=== PATIENT | female | born 1965 | race Caucasian/White ===

== ENCOUNTER → 2016-08-13 | Outpatient (CLI) | payer OTHER ==
[~2016-08-13] MED LIST: ACET500T PO; BENT10CA PO; CELE1CAP9 PO; FURO20TA2 PO; K-TA10TA2 PO; LISI20TA PO; LOVA40TA PO; META28.35 PO; NAPR500T2 PO; PANT40TA2 PO; POTA75TA PO; SUCR1TA PO; ULTR50TA PO; VITA1CAP25 PO; VITA400T15 PO
== END ==
LOC: M LAB 09:30
PROVIDERS: ATTEND Internal Medicine Gastroenterology
DX: R19.7 Diarrhea, unspecified (principal)

== ENCOUNTER → 2016-08-22 | Outpatient (CLI) | payer OTHER ==
[~2016-08-22] VITALS: Ht 165.1 cm; Wt 70.8 kg
[~2016-08-22] MED LIST changes: +NS 1,000 ML IV SCH; +PROPOFOL 200 MG/20 ML VIAL As Ordered ONE
--- NOTE | 2016-08-22 13:01 | ROOR ---
Patient Name: Teri Ackerman Procedure Date: 08/22/2016 12:27 PM Date of : 1965 Age: 50 Room: [facility] Gender: Female Note Status: Finalized Procedure: Upper GI endoscopy Indications: Weight loss Providers: Greg MARTINEZ MD Referring MD: Tashi Venegas MD Requesting Provider: Medicines: Monitored Anesthesia Care Complications: No immediate complications. Procedure: Pre-Anesthesia Assessment: - The heart rate, respiratory rate, oxygen saturations, blood pressure, adequacy of pulmonary ventilation, and response to care were monitored throughout the procedure. The Endoscope was introduced through the mouth, and advanced to the second part of duodenum. The upper GI endoscopy was accomplished without difficulty. The patient tolerated the procedure well. Findings: A small, submucosal and ulcerating 1 cm nodule with no stigmata of recent bleeding was found in the upper third of the esophagus, 15 cm from the incisors. The mass was non-obstructing. The Z-line was regular and was found 37 cm from the incisors. The entire examined stomach was normal. The examined duodenum was normal. Biopsies were taken with a cold forceps in the proximal esophagus for histology. Impression: - 1 cm ulcerated submucosal esophageal nodule was found in the upper third of the esophagus. - Biopsied - Z-line regular, 37 cm from the incisors. - Normal stomach. - Normal examined duodenum. - No specimens collected. Recommendation: - Await pathology results. - Return to my office in 1 week. Greg Martinez MD Greg MARTINEZ MD 08/22/2016 1:00:54 PM This report has been signed electronically. Number of Addenda: 0 Note Initiated On: 08/22/2016 12:27 PM Estimated Blood Loss: Estimated blood loss: none.
--- NOTE | 2016-08-22 13:05 | ROOR ---
Patient Name: Teri Ackerman Procedure Date: 08/22/2016 12:28 PM Date of : 1965 Age: 50 Room: [facility] Gender: Female Note Status: Finalized Procedure: Colonoscopy Indications: Chronic diarrhea, Weight loss Providers: Greg MARTINEZ MD Referring MD: Tashi Venegas MD Requesting Provider: Medicines: Monitored Anesthesia Care Complications: No immediate complications. Procedure: Pre-Anesthesia Assessment: - The heart rate, respiratory rate, oxygen saturations, blood pressure, adequacy of pulmonary ventilation, and response to care were monitored throughout the procedure. The Colonoscope was introduced through the anus and advanced to the cecum, identified by appendiceal orifice and ileocecal valve. The colonoscopy was performed without difficulty. The patient tolerated the procedure well. The quality of the bowel preparation was good. Findings: The perianal and digital rectal examinations were normal. (Exam: Complete, Prep: Good or Excellent.) Three sessile polyps were found in the rectum and recto-sigmoid colon. The polyps were diminutive in size. These polyps were removed with a jumbo cold forceps. Resection and retrieval were complete. Non-bleeding internal hemorrhoids were found during retroflexion. The hemorrhoids were moderate. The exam was otherwise without abnormality on direct and retroflexion views. The terminal ileum appeared normal. Biopsies for histology were taken with a cold forceps for evaluation of microscopic colitis. Impression: - Three diminutive polyps in the rectum and at the recto-sigmoid colon, removed with a jumbo cold forceps. Resected and retrieved. - Non-bleeding internal hemorrhoids. - The examination of the colon and terminal ileum was otherwise normal on direct and retroflexion views. - Biopsies were taken with a cold forceps for evaluation of microscopic colitis. Recommendation: - Await pathology results. - Return to my office in 1 week. Greg Martinez MD Greg MARTINEZ MD 08/22/2016 1:04:44 PM This report has been signed electronically. Number of Addenda: 0 Note Initiated On: 08/22/2016 12:28 PM Estimated Blood Loss: Estimated blood loss: none.
[2016-08-22 13:29] VITALS: BP 105/69
== END | disposition home or self-care (01) ==
LOC: M OPP 10:52
PROVIDERS: ATTEND Internal Medicine Gastroenterology
DX: K62.1 Rectal polyp (principal); D12.7 Benign neoplasm of rectosigmoid junction; K64.8 Other hemorrhoids; R63.4 Abnormal weight loss; C15.3 Malignant neoplasm of upper third of esophagus; I10 Essential (primary) hypertension; E78.00 Pure hypercholesterolemia, unspecified; F17.200 Nicotine dependence, unspecified, uncomplicated; Z79.899 Other long term (current) drug therapy; Z88.2 Allergy status to sulfonamides

== ENCOUNTER → 2016-09-06 | Outpatient (CLI) | payer OTHER ==
[~2016-09-06] MED LIST changes: -NS 1,000 ML IV SCH; -PROPOFOL 200 MG/20 ML VIAL As Ordered ONE
--- NOTE | 2016-09-06 14:51 | REP ---
PET/CT: HISTORY: Esophageal adenocarcinoma. Monitoring response to treatment for esophageal carcinoma. Upper GI endoscopy from 08/22/2016 showed a 1 cm nodule with overlying ulceration in the upper third of the esophagus 15 cm from the incisors. COMPARISONS: Comparison CT study abdomen and pelvis 04/19/2016. Comparison chest CT 05/10/2016. TECHNIQUE: 46 minutes following the intravenous injection of a 7.6 mCi dose of F-18 FDG, three-dimensional PET scintigraphy is acquired from the skull base to the proximal thighs. Triplanar noncontrast CT scanning is acquired through the same anatomic range for attenuation correction, and image registration with scan parameters optimized to minimize radiation exposure to the patient. PET scintigraphy and CT datasets were fused and displayed on a workstation with multiplanar and projection display capability. PET/CT FINDINGS: There is a small focus of intensely hypermetabolic uptake in the proximal thoracic esophagus just below the thoracic inlet. Maximum SUV value in this small nodule is 12.9. The area of increased uptake is barely visible on accompanying CT. It measures 1.4 cm in diameter on PET scintigraphy images. No other abnormal hypermetabolic uptake is seen within the chest or mediastinum. Head and neck soft tissues are unremarkable. No pulmonary parenchymal nodule or mass lesion is observed. In the abdomen and pelvis, normal hepatic, splenic, gastrointestinal, and genitourinary FDG accumulation is seen. No abnormal intra-abdominal or pelvic hypermetabolic uptake is seen. IMPRESSION: There is a small 1.4 cm nodular hypermetabolic focus in the proximal thoracic esophagus just below the thoracic inlet. No other abnormal hypermetabolic uptake is seen. Signed by Ronnell Bautista MD 09/06/2016 03:18 P
== END ==
LOC: M RAD 11:19
PROVIDERS: ATTEND Internal Medicine Gastroenterology
DX: C15.9 Malignant neoplasm of esophagus, unspecified (principal)

== ENCOUNTER → 2016-10-11 | Outpatient (CLI) | payer OTHER ==
[2016-10-11 09:27] LABS: BASO % 0.7 % (0.0-1.0); EOS # 0.2 K/mm3 (0.0-0.50); EOS % 3.5 % (0.0-3.0); LARGE UNSTAINED CELL # 0.2 K/mm3 (0.0-0.4); LARGE UNSTAINED CELL % 2.4 % (0.0-4.0); LYMPH % 31.3 % (24.0-44.0); MEAN CORPUSCULAR HGB CONC 33.2 g/dl (32.0-36.5); MEAN CORPUSCULAR VOLUME 93.3 fl (80.0-96.0); MONO # 0.4 K/mm3 (0.0-0.8); MONO % 5.9 % (0.0-5.0); NEUTROPHILS # 3.6 K/mm3 (1.8-7.7); NEUTROPHILS % 56.3 % (36.0-66.0); PLATELET COUNT, AUTOMATED 212 k/mm3 (150-450); RED CELL DISTRIBUTION WIDTH 12.2 % (11.5-14.5); WHITE BLOOD COUNT 6.5 K/mm3 (4.0-10.0)
[2016-10-11 09:44] LABS: ALBUMIN 3.6 GM/DL (3.2-5.2); ALBUMIN/GLOBULIN RATIO 1.38 (1.00-1.93); ALKALINE PHOSPHATASE 65 U/L (45-117); ALT/SGPT 18 U/L (12-78); ANION GAP 8 MEQ/L (8-16); AST/SGOT 10 U/L (15-37); BILIRUBIN,TOTAL 0.4 MG/DL (0.2-1.0); BLOOD UREA NITROGEN 14 MG/DL (7-18); CARBON DIOXIDE LEVEL 29 MEQ/L (21-32); CHLORIDE LEVEL 106 MEQ/L (98-107); CREATININE FOR GFR 0.97 MG/DL (0.55-1.02); GLOMERULAR FILTRATION RATE > 60.0 (>51); GLUCOSE, FASTING 90 MG/DL (70-105); SODIUM LEVEL 143 MEQ/L (136-145); TOTAL PROTEIN 6.2 GM/DL (6.4-8.2)
--- NOTE | 2016-10-11 11:10 | ECGEPIP ---
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
== END ==
LOC: M LAB 08:32
PROVIDERS: ATTEND Internal Medicine Gastroenterology
DX: C15.3 Malignant neoplasm of upper third of esophagus (principal)

== ENCOUNTER → 2016-10-16 | Outpatient (REF) | payer OTHER | LOC: M LAB REF 09:35 | PROVIDERS: ATTEND Physician Assistant | DX: J02.9 Acute pharyngitis, unspecified (principal) ==

== ENCOUNTER → 2017-01-17 | Outpatient (CLI) | payer OTHER ==
[~2017-01-17] MED LIST changes: +CLAR1TAB2 PO; +TRIA1CR TOP
[2017-01-17 11:26] LABS: BASO % 0.8 % (0.0-1.0); EOS # 0.2 K/mm3 (0.0-0.50); LARGE UNSTAINED CELL # 0.1 K/mm3 (0.0-0.4); LYMPH % 34.5 % (24.0-44.0); MEAN CORPUSCULAR HEMOGLOBIN 29.9 pg (27.0-33.0); MEAN CORPUSCULAR HGB CONC 32.7 g/dl (32.0-36.5); MEAN CORPUSCULAR VOLUME 91.5 fl (80.0-96.0); MONO # 0.3 K/mm3 (0.0-0.8); MONO % 6.3 % (0.0-5.0); NEUTROPHILS # 2.8 K/mm3 (1.8-7.7); NEUTROPHILS % 52.5 % (36.0-66.0); PLATELET COUNT, AUTOMATED 220 k/mm3 (150-450); RED CELL DISTRIBUTION WIDTH 12.6 % (11.5-14.5); WHITE BLOOD COUNT 5.4 K/mm3 (4.0-10.0)
[2017-01-17 11:40] LABS: ALBUMIN 3.8 GM/DL (3.2-5.2); ALBUMIN/GLOBULIN RATIO 1.46 (1.00-1.93); BILIRUBIN,TOTAL 0.6 MG/DL (0.2-1.0); CALCIUM LEVEL 9.4 MG/DL (8.5-10.1); CREATININE FOR GFR 1.04 MG/DL (0.55-1.02); FREE T4 1.04 NG/DL (0.76-1.46); PERCENT SATURATION 32.9 % (13.2-45.0); POTASSIUM SERUM 4.5 MEQ/L (3.5-5.1); TOTAL PROTEIN 6.4 GM/DL (6.4-8.2)
== END ==
LOC: M LAB 10:17
PROVIDERS: ATTEND Family Medicine
DX: N18.2 Chronic kidney disease, stage 2 (mild) (principal)

== ENCOUNTER → 2017-01-25 | Outpatient (CLI) | payer OTHER ==
[~2017-01-25] MED LIST changes: +GASTROGRAFIN SOLUTION 30ML (Q9963) As Ordered ONE; +ISOVUE-370 76% 100ML VIAL (Q9967) As Ordered ONE
--- NOTE | 2017-01-26 14:32 | REP ---
Clinical: Esophageal neoplasm. Technique: Axial contrast enhanced images from the thoracic inlet to the upper abdomen using 100 ml Isovue 370 intravenous contrast material with coronal and sagittal re-formations. Comparison: 05/10/2016 Findings: The bilateral lung aviles are well-aerated, symmetric and clear. No focal consolidation, nodule or mass lesion is appreciated. No pleural effusion/reaction or pneumothorax. Tracheobronchial tree is patent. No axillary, hilar, or mediastinal adenopathy is appreciated. The mediastinum demonstrates atherosclerotic changes to the coronary arteries without cardiomegaly or pericardial effusion. The thoracic aorta appears normal and without aneurysm or dissection. The middle mediastinum including the esophagus and paraesophageal soft tissues appear relatively normal. Surrounding musculoskeletal structures are intact. Limited evaluation of the upper abdomen demonstrates stable low density hyperplastic changes to the bilateral adrenal glands essentially unchanged compared to 04/19/2016 and 08/31/2011. Impression: 1. Essentially normal contrast enhanced chest CT. 2. The mediastinum appears normal and the paraesophageal soft tissue and esophagus appear unremarkable. 3. No acute mediastinal or pleuroparenchymal process appreciated. Signed by Bismark Sal MD 01/25/2017 11:22 P
--- NOTE | 2017-01-26 14:32 | REP ---
Clinical: History of esophageal carcinoma. Technique: Axial contrast enhanced images from the lung bases to the pubic symphysis using oral and 100 ml Isovue 370 intravenous contrast material with precontrast and delayed images of the abdomen as well as coronal and sagittal re-formations. Comparison: 04/19/2016. Findings: Lung bases are clear. Visualized heart and pericardium normal. Liver, spleen, pancreas, and bilateral kidneys appear normal. Stable hyperplastic changes to the bilateral adrenal glands again noted. Evidence for prior cholecystectomy. The enteric system is without obstruction or acute inflammatory process. Normal terminal ileum and appendix identified in the right lower quadrant. Pelvis demonstrates normal bladder and age-appropriate uterus/adnexa. No pelvic fluid or ascites. No significant adenopathy. No mass lesion. No free air. Atherosclerotic changes of the aorta and vasculature noted without aneurysm or dissection. Surrounding musculoskeletal structures demonstrate age-related changes without focal osseous abnormality. Impression: 1. Stable hyperplastic changes to the bilateral adrenal glands. 2. No acute abdominopelvic pathology appreciated. Signed by Bismark Sal MD 01/25/2017 11:25 P
== END ==
LOC: M RAD 15:17
PROVIDERS: ATTEND Family Medicine
DX: C15.3 Malignant neoplasm of upper third of esophagus (principal)
CPT/HCPCS: 71260; 74178; Q9963; Q9967

== ENCOUNTER → 2017-02-21 | Outpatient (REF) | payer OTHER ==
[~2017-02-21] MED LIST changes: -GASTROGRAFIN SOLUTION 30ML (Q9963) As Ordered ONE; -ISOVUE-370 76% 100ML VIAL (Q9967) As Ordered ONE
[2017-02-28 00:06] LABS: EBV PCR QUANTITATIVE Negative copies/mL (Negative); Lyme Disease IgG/IgM Antibodie <0.91 ISR (0.00-0.90); Lyme Disease IgM Ab Quantitati <0.80 index (0.00-0.79)
== END ==
LOC: M SFHCPLAZ 15:22
PROVIDERS: ATTEND Physician Assistant Medical
DX: R53.82 Chronic fatigue, unspecified (principal)

== ENCOUNTER → 2017-03-09 | Outpatient (REF) | payer OTHER | LOC: M SFHCPLAZ 15:15 → M LAB REF 15:15 | PROVIDERS: ATTEND Nurse Practitioner Family | DX: S00.31XA Abrasion of nose, initial encounter (principal); X58.XXXA Exposure to other specified factors, initial encounter; Y92.89 Other specified places as the place of occurrence of the external cause; Y93.89 Activity, other specified; Y99.8 Other external cause status ==

== ENCOUNTER → 2017-03-11 | Outpatient (CLI) | payer OTHER ==
[2017-03-11 11:20] LABS: ALKALINE PHOSPHATASE 77 U/L (45-117); ALT/SGPT 23 U/L (12-78); AST/SGOT 11 U/L (15-37); BILIRUBIN,DIRECT 0.1 MG/DL (0.0-0.2); BILIRUBIN,TOTAL 0.3 MG/DL (0.2-1.0); BLOOD UREA NITROGEN 17 MG/DL (7-18); CALCIUM LEVEL 8.6 MG/DL (8.5-10.1); CARBON DIOXIDE LEVEL 29 MEQ/L (21-32); CHLORIDE LEVEL 108 MEQ/L (98-107); CREATININE FOR GFR 1.04 MG/DL (0.55-1.02); GLUCOSE, FASTING 91 MG/DL (70-105); PHOSPHORUS LEVEL 3.2 MG/DL (2.5-4.9); POTASSIUM SERUM 4.1 MEQ/L (3.5-5.1); TOTAL PROTEIN 6.4 GM/DL (6.4-8.2)
[2017-03-11 11:27] LABS: ALBUMIN 3.6 GM/DL (3.2-5.2); ALBUMIN/GLOBULIN RATIO 1.29 (1.00-1.93)
[2017-03-11 12:58] LABS: ANION GAP 6 MEQ/L (8-16); SODIUM LEVEL 143 MEQ/L (136-145)
== END ==
LOC: M LAB 10:18
PROVIDERS: ATTEND Physician Assistant
DX: M47.896 Other spondylosis, lumbar region (principal)

== ENCOUNTER → 2017-03-14 | Outpatient (REF) | payer OTHER ==
[2017-03-14 16:22] LABS: FREE T4 1.12 NG/DL (0.76-1.46)
== END ==
LOC: M SFHCPLAZ 11:36
PROVIDERS: ATTEND Physician Assistant Medical
DX: R53.82 Chronic fatigue, unspecified (principal)

== ENCOUNTER 2017-03-19 21:08 | Emergency (ER) | payer OTHER ==
[~2017-03-19] VITALS: Ht 165.1 cm; Wt 89.9 kg
[~2017-03-19 21:08] MED LIST changes: -CLAR1TAB2 PO; -TRIA1CR TOP
[2017-03-20] MEDS ORDERED: CLAR1TAB2 PO (01:30)
[2017-03-20] MEDS ORDERED: TRIA1CR TOP (01:30)
[2017-03-20 01:36] VITALS: BP 134/85
[2017-03-20] MEDS ORDERED: diphenhydrAMINE 25 MG CAP PO ONE (01:45)
== END 2017-03-20 01:43 | disposition home or self-care (01) ==
LOC: M ED 21:08
DX: L42 Pityriasis rosea (principal); I10 Essential (primary) hypertension; E78.00 Pure hypercholesterolemia, unspecified; Z79.899 Other long term (current) drug therapy; Z88.2 Allergy status to sulfonamides; Z87.891 Personal history of nicotine dependence

== ENCOUNTER → 2017-03-20 | Outpatient (CLI) | payer OTHER ==
[~2017-03-20] MED LIST changes: +CLAR1TAB2 PO; +TRIA1CR TOP
--- NOTE | 2017-03-27 07:41 | SLEEPHOME ---
DATE OF STUDY: 03/20/2017 ORDERED BY: KARYN Corley Diagnostic home sleep testing was performed due to concern for the obstructive sleep apnea syndrome in this patient with a history of excessive somnolence, chronic fatigue and snoring. For testing, a nocturnal T3 respiratory monitoring device was used. Continuous record was made of pulse, oxygen saturation, airflow, chest and abdominal strain , and body position. 9 hour and 9 minutes of data were reviewed. There were 5 hours and 46 minutes marked as time in bed. During the interval marked time in bed, there were 23 respiratory events identified of 10 seconds in duration or greater for a respiratory event index of 4. The events were of various types, both mixed, central and obstructive, most commonly obstructive. Strain gauges did show variability between overt respiratory events. Respiratory events were most frequent in the supine posture. The patient's baseline pulse rate was 80 beats per minute. Pulse rate ranged 63-161. Baseline saturation 94%, lowest oxygen saturation recorded 87%. Testing was performed in both the supine and non- supine positions. IMPRESSION: Borderline diagnostic home sleep testing with repetitive respiratory events and oxygen desaturation to 87% with a respiratory event index of 4 is suggestive of the obstructive sleep apnea syndrome. RECOMMENDATION: Given that the events seen were more frequent in the supine posture, sleep position retraining for avoidance of the supine posture would be reasonable. Should the patient's sleep symptoms persist, referral for formal sleep evaluation and in-laboratory testing could be considered, as in lab testing is more sensitive for the identification of mild disease. MTDD
== END ==
LOC: M SLEEP HO 10:17
PROVIDERS: ATTEND Physician Assistant Medical
DX: G47.33 Obstructive sleep apnea (adult) (pediatric) (principal)

== ENCOUNTER → 2017-04-23 | Outpatient (CLI) | payer OTHER ==
--- NOTE | 2017-04-23 15:38 | REPMRS ---
Patient History The patient states she had a clinical breast exam in September 2016. Patient is nulliparous. Family history of colorectal cancer in maternal aunt at age 50 or over. Took hormonal contraceptives for 3 years. Digital Mammo Screening Bilat: April 23, 2017 - Exam #: [id number] Bilateral CC and MLO view(s) were taken. Technologist: Marbella Bobo, Technologist Prior study comparison: March 28, 2016, bilateral digital mammo screening bilat performed at [facility]. March 25, 2015, bilateral digital mammo screening bilat performed at [facility]. FINDINGS: There are scattered fibroglandular densities. There has been no change in the appearance of the mammogram from the prior studies. There is a mild amount of scattered fibroglandular density which is fairly symmetric. There is no interval development of dominant mass, architectural distortion, or clustered microcalcification suggestive of malignancy. ASSESSMENT: BI-RADS/ACR category 1 mammogram. Negative. Recommendation Routine screening mammogram in 1 year (for women over age 40). This mammogram was interpreted with the aid of an FDA-approved computer-aided dectection system. Electronically Signed By: Adam Bautista MD 04/23/17 9721
== END ==
LOC: M RAD 14:39
PROVIDERS: ATTEND Family Medicine
DX: Z12.31 Encounter for screening mammogram for malignant neoplasm of breast (principal)

== ENCOUNTER → 2017-05-31 | Outpatient (CLI) | payer OTHER ==
[2017-05-31 10:27] LABS: ANION GAP 6 MEQ/L (8-16); BLOOD UREA NITROGEN 31 MG/DL (7-18); CALCIUM LEVEL 9.9 MG/DL (8.5-10.1); CARBON DIOXIDE LEVEL 29 MEQ/L (21-32); CHLORIDE LEVEL 107 MEQ/L (98-107); CREATININE FOR GFR 0.95 MG/DL (0.55-1.02); FREE T4 0.97 NG/DL (0.76-1.46); GLOMERULAR FILTRATION RATE > 60.0 (>51); GLUCOSE, FASTING 101 MG/DL (70-105); POTASSIUM SERUM 4.8 MEQ/L (3.5-5.1); SODIUM LEVEL 142 MEQ/L (136-145)
== END ==
LOC: M LAB 09:17
DX: R10.33 Periumbilical pain (principal)
CPT/HCPCS: 84443

== ENCOUNTER → 2017-06-01 | Outpatient (CLI) | payer OTHER ==
[~2017-06-01] MED LIST changes: -ACET500T PO; -BENT10CA PO; -CELE1CAP9 PO; -CLAR1TAB2 PO; -FURO20TA2 PO; +GASTROGRAFIN SOLUTION 30ML (Q9963) As Ordered; +ISOVUE-370 76% 100ML VIAL (Q9967) As Ordered; -K-TA10TA2 PO; -LISI20TA PO; -LOVA40TA PO; -META28.35 PO; -NAPR500T2 PO; -PANT40TA2 PO; -POTA75TA PO; -SUCR1TA PO; -TRIA1CR TOP; -ULTR50TA PO; -VITA1CAP25 PO; -VITA400T15 PO
== END ==
LOC: M RAD 13:52
DX: R10.33 Periumbilical pain (principal)
CPT/HCPCS: Q9963

== ENCOUNTER → 2017-07-21 | Outpatient (CLI) | payer OTHER ==
[2017-07-21 11:12] LABS: ALBUMIN 3.7 GM/DL (3.2-5.2); ALBUMIN/GLOBULIN RATIO 1.19 (1.00-1.93); ALKALINE PHOSPHATASE 84 U/L (45-117); ALT/SGPT 26 U/L (12-78); ANION GAP 7 MEQ/L (8-16); AST/SGOT 9 U/L (7-37); BILIRUBIN,TOTAL 0.3 MG/DL (0.2-1.0); BLOOD UREA NITROGEN 32 MG/DL (7-18); CARBON DIOXIDE LEVEL 25 MEQ/L (21-32); CHLORIDE LEVEL 112 MEQ/L (98-107); CREATININE FOR GFR 0.93 MG/DL (0.55-1.30); GLOMERULAR FILTRATION RATE > 60.0 (>51); GLUCOSE, FASTING 110 MG/DL (70-100); POTASSIUM SERUM 4.9 MEQ/L (3.5-5.1); SODIUM LEVEL 144 MEQ/L (136-145); TOTAL PROTEIN 6.8 GM/DL (6.4-8.2)
== END ==
LOC: M LAB 09:07
DX: R10.84 Generalized abdominal pain (principal)
CPT/HCPCS: 80053

== ENCOUNTER → 2017-07-23 | Outpatient (CLI) | payer OTHER ==
[~2017-07-23] MED LIST changes: -GASTROGRAFIN SOLUTION 30ML (Q9963) As Ordered; -ISOVUE-370 76% 100ML VIAL (Q9967) As Ordered; +PROHANCE 279.3MG/ML 15ML VIAL (A9576) As Ordered; +PROHANCE 279.3MG/ML 5ML VIAL (A9576) As Ordered
== END ==
LOC: M RAD 08:41
DX: R10.33 Periumbilical pain (principal); M47.816 Spondylosis without myelopathy or radiculopathy, lumbar region; C15.3 Malignant neoplasm of upper third of esophagus; D18.09 Hemangioma of other sites; M51.26 Other intervertebral disc displacement, lumbar region
CPT/HCPCS: A9576

== ENCOUNTER → 2017-08-18 | Outpatient (CLI) | payer OTHER ==
[2017-08-18 16:41] LABS: BASO # 0.1 10^3/uL (0.0-0.2); BASO % 0.7 % (0.0-1.0); EOS # 0.2 10^3/uL (0.0-0.50); EOS % 2.1 % (0.0-3.0); HEMATOCRIT 41.8 % (36.0-47.0); HEMOGLOBIN 13.5 g/dl (12.0-16.0); IMMATURE GRANULOCYTE % 0.3 % (0-3.0); LYMPH # 2.2 10^3/uL (1.5-4.5); LYMPH % 30.2 % (24.0-44.0); MEAN CORPUSCULAR HEMOGLOBIN 28.5 pg (27.0-33.0); MEAN CORPUSCULAR HGB CONC 32.3 g/dl (32.0-36.5); MEAN CORPUSCULAR VOLUME 88.4 fl (80.0-96.0); MONO # 0.6 10^3/uL (0.0-0.8); MONO % 8.2 % (0.0-5.0); NEUTROPHILS # 4.2 10^3/uL (1.8-7.7); NEUTROPHILS % 58.5 % (36.0-66.0); PLATELET COUNT, AUTOMATED 238 10^3/uL (150-450); RED BLOOD COUNT 4.73 10^6/uL (4.00-5.40); RED CELL DISTRIBUTION WIDTH 13.2 % (11.5-14.5); WHITE BLOOD COUNT 7.2 10^3/uL (4.0-10.0)
== END ==
LOC: M LAB 16:03
DX: M47.896 Other spondylosis, lumbar region (principal)
CPT/HCPCS: 85025

== ENCOUNTER 2017-09-17 10:06 | Emergency (ER) | payer OTHER ==
[2017-09-17 11:05] LABS: BASO % 0.6 % (0.0-1.0); EOS # 0.2 10^3/uL (0.0-0.50); EOS % 3.2 % (0.0-3.0); HEMATOCRIT 41.5 % (36.0-47.0); HEMOGLOBIN 13.4 g/dl (12.0-15.5); IMMATURE GRANULOCYTE % 0.2 % (0-3.0); LYMPH # 1.8 10^3/uL (1.5-4.5); LYMPH % 28.8 % (24.0-44.0); MEAN CORPUSCULAR HEMOGLOBIN 28.5 pg (27.0-33.0); MEAN CORPUSCULAR HGB CONC 32.3 g/dl (32.0-36.5); MEAN CORPUSCULAR VOLUME 88.1 fl (80.0-96.0); MONO # 0.5 10^3/uL (0.0-0.8); MONO % 7.4 % (0.0-5.0); NEUTROPHILS # 3.7 10^3/uL (1.8-7.7); NEUTROPHILS % 59.8 % (36.0-66.0); PLATELET COUNT, AUTOMATED 225 10^3/uL (150-450); RED BLOOD COUNT 4.71 10^6/uL (4.00-5.40); RED CELL DISTRIBUTION WIDTH 13.2 % (11.5-14.5); WHITE BLOOD COUNT 6.2 10^3/uL (4.0-10.0)
[2017-09-17 11:16] LABS: INR 0.94; PROTHROMBIN TIME 12.6 SECONDS (12.4-14.5)
[2017-09-17 11:17] LABS: PARTIAL THROMBOPLASTIN TIME 28.6 SECONDS (26.8-37.9)
[2017-09-17 11:40] LABS: ALBUMIN 3.7 GM/DL (3.2-5.2); ALBUMIN/GLOBULIN RATIO 1.19 (1.00-1.93); ALKALINE PHOSPHATASE 88 U/L (45-117); ALT/SGPT 26 U/L (12-78); ANION GAP 5 MEQ/L (8-16); AST/SGOT 13 U/L (7-37); BILIRUBIN,DIRECT < 0.1 MG/DL (0.0-0.2); BILIRUBIN,TOTAL 0.3 MG/DL (0.2-1.0); BLOOD UREA NITROGEN 26 MG/DL (7-18); CALCIUM LEVEL 9.5 MG/DL (8.5-10.1); CARBON DIOXIDE LEVEL 28 MEQ/L (21-32); CHLORIDE LEVEL 109 MEQ/L (98-107); CPK CREATINE PHOSPHOKINASE 95 U/L (26-192); CREATININE FOR GFR 0.97 MG/DL (0.55-1.30); FREE T4 0.93 NG/DL (0.76-1.46); GLOMERULAR FILTRATION RATE > 60.0 (>51); GLUCOSE, FASTING 104 MG/DL (70-100); LIPASE 139 U/L (73-393); POTASSIUM SERUM 4.7 MEQ/L (3.5-5.1); SODIUM LEVEL 142 MEQ/L (136-145); TOTAL PROTEIN 6.8 GM/DL (6.4-8.2); TROPONIN I < 0.02 NG/ML (< 0.10)
[2017-09-17 11:46] LABS: CK-MB VALUE MASS 2.5 NG/ML (<3.6); MB/CK RELATIVE INDEX 2.63 (< OR =4); NT-PRO BNP 77 PG/ML (<125)
[2017-09-17 14:41] LABS: CK-MB VALUE MASS 2.2 NG/ML (<3.6); CPK CREATINE PHOSPHOKINASE 84 U/L (26-192); MB/CK RELATIVE INDEX 2.61 (< OR =4); TROPONIN I < 0.02 NG/ML (< 0.10)
== END 2017-09-17 15:02 | disposition home or self-care (01) ==
LOC: M ED 10:06
DX: R00.2 Palpitations (principal); K21.9 Gastro-esophageal reflux disease without esophagitis; I10 Essential (primary) hypertension; E78.5 Hyperlipidemia, unspecified; Z88.2 Allergy status to sulfonamides; Z79.899 Other long term (current) drug therapy
CPT/HCPCS: 71045

== ENCOUNTER 2017-10-04 11:15 | Day surgery (SDC) | payer OTHER ==
[2017-10-04] MEDS: NS 1,000 ML IV (11:30)
[2017-10-04] MEDS ORDERED: fentaNYL 100 MCG/2 ML INJECTION (J3010) As Ordered (11:53)
[2017-10-04] MEDS ORDERED: PROPOFOL 200 MG/20 ML VIAL As Ordered (11:53)
[2017-10-04] MEDS ORDERED: LIDOCAINE 2% INJ 100 MG/5 ML SDV (FOR ANES.) As Ordered (11:53)
== END 2017-10-04 13:10 | disposition home or self-care (01) ==
LOC: M OPP 11:15
DX: Q40.2 Other specified congenital malformations of stomach (principal); K22.8 Other specified diseases of esophagus; K31.84 Gastroparesis; R10.13 Epigastric pain; I10 Essential (primary) hypertension; E78.00 Pure hypercholesterolemia, unspecified; K21.9 Gastro-esophageal reflux disease without esophagitis; E87.6 Hypokalemia; R94.31 Abnormal electrocardiogram [ECG] [EKG]; Z79.899 Other long term (current) drug therapy; Z88.8 Allergy status to other drugs, medicaments and biological substances; Z87.891 Personal history of nicotine dependence; Z85.01 Personal history of malignant neoplasm of esophagus; Z90.49 Acquired absence of other specified parts of digestive tract; Z82.49 Family history of ischemic heart disease and other diseases of the circulatory system
CPT/HCPCS: 43235

== ENCOUNTER → 2018-01-20 | Outpatient (CLI) | payer OTHER ==
[2018-01-20 17:45] LABS: BASO % 0.5 % (0.0-1.0); EOS # 0.1 10^3/uL (0.0-0.50); EOS % 1.5 % (0.0-3.0); HEMOGLOBIN 13.7 g/dl (12.0-15.5); IMMATURE GRANULOCYTE % 0.3 % (0-3.0); LYMPH # 1.9 10^3/uL (1.5-4.5); MEAN CORPUSCULAR HEMOGLOBIN 28.2 pg (27.0-33.0); MEAN CORPUSCULAR HGB CONC 32.6 g/dl (32.0-36.5); MEAN CORPUSCULAR VOLUME 86.4 fl (80.0-96.0); MONO # 0.5 10^3/uL (0.0-0.8); MONO % 7.2 % (0.0-5.0); NEUTROPHILS # 4.8 10^3/uL (1.8-7.7); NEUTROPHILS % 64.5 % (36.0-66.0); PLATELET COUNT, AUTOMATED 276 10^3/uL (150-450); RED BLOOD COUNT 4.86 10^6/uL (4.00-5.40); RED CELL DISTRIBUTION WIDTH 13.9 % (11.5-14.5); RETIC HEMOGLOBIN EQUIVALENT 32.7 pg (24-36); RETICULOCYTE # 75.3 10^9/L (17-77); RETICULOCYTE % 1.6 % (0.5-1.5); WHITE BLOOD COUNT 7.5 10^3/uL (4.0-10.0)
[2018-01-20 18:02] LABS: ESTIMATED AVERAGE GLUCOSE 123 MG/DL (60-110); HEMOGLOBIN A1c 5.9 %
[2018-01-20 18:03] LABS: ALBUMIN 3.8 GM/DL (3.2-5.2); ALBUMIN/GLOBULIN RATIO 1.12 (1.00-1.93); ALKALINE PHOSPHATASE 91 U/L (45-117); ALT/SGPT 39 U/L (12-78); ANION GAP 8 MEQ/L (8-16); AST/SGOT 19 U/L (7-37); BILIRUBIN,TOTAL 0.3 MG/DL (0.2-1.0); BLOOD UREA NITROGEN 21 MG/DL (7-18); C REACTIVE PROTEIN QUANTITATIV 0.54 MG/DL (0.00-0.30); CALCIUM LEVEL 9.3 MG/DL (8.5-10.1); CARBON DIOXIDE LEVEL 26 MEQ/L (21-32); CHLORIDE LEVEL 109 MEQ/L (98-107); CHOLESTEROL LEVEL 166 MG/DL (<200); CHOLESTEROL RISK RATIO 2.677 (<5); CPK CREATINE PHOSPHOKINASE 156 U/L (26-192); CREATININE FOR GFR 1.15 MG/DL (0.55-1.30); GLOMERULAR FILTRATION RATE 52.3 (>51); GLUCOSE, FASTING 88 MG/DL (70-100); HDL CHOLESTEROL 62 MG/DL (>40); NON-HDL-C 104 MG/DL; POTASSIUM SERUM 4.5 MEQ/L (3.5-5.1); SODIUM LEVEL 143 MEQ/L (136-145); TOTAL PROTEIN 7.2 GM/DL (6.4-8.2); TRIGLYCERIDES LEVEL 105 MG/DL (<150)
[2018-01-21 10:04] LABS: PTH INTACT 112.1 PG/ML (18.5-88.0); TOTAL 25(OH) VITAMIN D 88.1 NG/ML (30.0-100.0)
[2018-01-21 10:05] LABS: VITAMIN B12 LEVEL 551 PG/ML (247-911)
[2018-01-22 14:22] LABS: INSULIN LEVEL 52.2 uIU/mL (2.6-24.9)
== END ==
LOC: M LAB 16:53
DX: I10 Essential (primary) hypertension (principal); E66.9 Obesity, unspecified; E55.9 Vitamin D deficiency, unspecified; E53.8 Deficiency of other specified B group vitamins
CPT/HCPCS: 82550

== ENCOUNTER → 2018-01-20 | Outpatient (CLI) | payer OTHER | LOC: M RAD 16:59 | DX: M75.41 Impingement syndrome of right shoulder (principal) | CPT/HCPCS: 73030 ==

== ENCOUNTER 2018-03-12 10:23 | Emergency (ER) | payer OTHER ==
[2018-03-12] MEDS: NS 1,000 ML IV (11:25)
[2018-03-12] MEDS: ONDANSETRON 4MG/2ML VIAL (J2405) IV (11:25)
[2018-03-12 11:36] LABS: BASO % 0.3 % (0.0-1.0); EOS % 0.1 % (0.0-3.0); HEMATOCRIT 47.8 % (36.0-47.0); HEMOGLOBIN 15.6 g/dl (12.0-15.5); IMMATURE GRANULOCYTE % 0.3 % (0-3.0); LYMPH # 0.7 10^3/uL (1.5-4.5); LYMPH % 10.3 % (24.0-44.0); MEAN CORPUSCULAR HEMOGLOBIN 28.3 pg (27.0-33.0); MEAN CORPUSCULAR HGB CONC 32.6 g/dl (32.0-36.5); MEAN CORPUSCULAR VOLUME 86.8 fl (80.0-96.0); MONO # 0.4 10^3/uL (0.0-0.8); MONO % 6.5 % (0.0-5.0); NEUTROPHILS # 5.6 10^3/uL (1.8-7.7); NEUTROPHILS % 82.5 % (36.0-66.0); PLATELET COUNT, AUTOMATED 257 10^3/uL (150-450); RED BLOOD COUNT 5.51 10^6/uL (4.00-5.40); RED CELL DISTRIBUTION WIDTH 14.3 % (11.5-14.5); WHITE BLOOD COUNT 6.8 10^3/uL (4.0-10.0)
[2018-03-12 11:43] LABS: KETONE, URINE AUTO RFX NEGATIVE (NEGATIVE); LEUKOCYTE ESTERASE UR AUTO RFX NEGATIVE (NEGATIVE); MUCUS, URINE RFX SMALL (NEGATIVE); NITRITE, URINE AUTO RFX NEGATIVE (NEGATIVE); RBC, URINE AUTO RFX 0 /HPF (0-3); SPECIFIC GRAVITY UR AUTO RFX 1.032 (1.002-1.035); SQUAM EPITHELIAL CELL UR AURFX 5 /HPF (0-6); WBC, URINE AUTO RFX 0 /HPF (0-3)
[2018-03-12 12:05] LABS: ALBUMIN 3.7 GM/DL (3.2-5.2); ALBUMIN/GLOBULIN RATIO 0.86 (1.00-1.93); ALKALINE PHOSPHATASE 95 U/L (45-117); ALT/SGPT 32 U/L (12-78); AMYLASE 43 U/L (25-115); ANION GAP 9 MEQ/L (8-16); AST/SGOT 13 U/L (7-37); BILIRUBIN,DIRECT 0.2 MG/DL (0.0-0.2); BILIRUBIN,TOTAL 0.5 MG/DL (0.2-1.0); BLOOD UREA NITROGEN 20 MG/DL (7-18); CALCIUM LEVEL 8.8 MG/DL (8.5-10.1); CARBON DIOXIDE LEVEL 23 MEQ/L (21-32); CHLORIDE LEVEL 109 MEQ/L (98-107); CREATININE FOR GFR 1.12 MG/DL (0.55-1.30); GLUCOSE, FASTING 119 MG/DL (70-100); LIPASE 86 U/L (73-393); POTASSIUM SERUM 3.5 MEQ/L (3.5-5.1); SODIUM LEVEL 141 MEQ/L (136-145)
== END 2018-03-12 12:56 | disposition home or self-care (01) ==
LOC: M ED 10:23
DX: R11.2 Nausea with vomiting, unspecified (principal); R19.7 Diarrhea, unspecified; I10 Essential (primary) hypertension; E11.9 Type 2 diabetes mellitus without complications; Z88.2 Allergy status to sulfonamides; Z87.891 Personal history of nicotine dependence; Z79.899 Other long term (current) drug therapy; Z79.84 Long term (current) use of oral hypoglycemic drugs
CPT/HCPCS: J2405

== ENCOUNTER → 2018-04-24 | Outpatient (CLI) | payer OTHER | LOC: M RAD 09:11 | DX: Z12.31 Encounter for screening mammogram for malignant neoplasm of breast (principal); R92.1 Mammographic calcification found on diagnostic imaging of breast; Z85.01 Personal history of malignant neoplasm of esophagus; Z92.0 Personal history of contraception; Z87.891 Personal history of nicotine dependence | CPT/HCPCS: 77067 ==

== ENCOUNTER 2018-05-28 12:53 | Emergency (ER) | payer OTHER ==
[~2018-05-28] VITALS: Ht 165.1 cm; Wt 104.5 kg
[~2018-05-28 12:53] MED LIST changes: +24hr Holter; +ACET500T PO; +AMIT10TA PO; +BENT10CA PO; +CELE1CAP9 PO; +CLAR1TAB2 PO; +DICY20TA PO; +FURO20TA2 PO; +K-TA10TA2 PO; +LISI20TA PO; +LOVA40TA PO; +META28.35 PO; +METF500T13 PO; +METF500T4 PO; +NAPR500T2 PO; +PANT40TA2 PO; +POTA75TA PO; -PROHANCE 279.3MG/ML 15ML VIAL (A9576) As Ordered; -PROHANCE 279.3MG/ML 5ML VIAL (A9576) As Ordered; +SUCR1TA PO; +TRIA1CR TOP; +ULTR50TA PO; +VITA1CAP25 PO; +VITA400T15 PO; +ZOFR4TAB14 PO
[2018-05-28] MEDS ORDERED: GI COCKTAIL 50ML BTL(HYOSCYAMINE/MAALOX/LIDOCAINE VISCOUS)(1:3:1) PO ONE (13:30)
[2018-05-28 13:31] LABS: BASO # 0.1 10^3/uL (0.0-0.2); BASO % 0.4 % (0.0-1.0); EOS # 0.5 10^3/uL (0.0-0.50); EOS % 4.2 % (0.0-3.0); HEMATOCRIT 45.4 % (36.0-47.0); HEMOGLOBIN 14.9 g/dl (12.0-15.5); LYMPH # 2.5 10^3/uL (1.5-4.5); LYMPH % 21.6 % (24.0-44.0); MEAN CORPUSCULAR HEMOGLOBIN 28.2 pg (27.0-33.0); MEAN CORPUSCULAR HGB CONC 32.8 g/dl (32.0-36.5); MEAN CORPUSCULAR VOLUME 85.8 fl (80.0-96.0); MONO # 0.7 10^3/uL (0.0-0.8); MONO % 6.1 % (0.0-5.0); NEUTROPHILS # 7.8 10^3/uL (1.8-7.7); NEUTROPHILS % 67.4 % (36.0-66.0); PLATELET COUNT, AUTOMATED 283 10^3/uL (150-450); RED BLOOD COUNT 5.29 10^6/uL (4.00-5.40); WHITE BLOOD COUNT 11.5 10^3/uL (4.0-10.0)
[2018-05-28 13:55] LABS: ALBUMIN 3.6 GM/DL (3.2-5.2); ALT/SGPT 36 U/L (12-78); AMYLASE 73 U/L (25-115); BILIRUBIN,DIRECT < 0.1 MG/DL (0.0-0.2); BILIRUBIN,TOTAL 0.3 MG/DL (0.2-1.0); BLOOD UREA NITROGEN 20 MG/DL (7-18); CALCIUM LEVEL 9.2 MG/DL (8.5-10.1); CARBON DIOXIDE LEVEL 28 MEQ/L (21-32); CHLORIDE LEVEL 106 MEQ/L (98-107); CK-MB VALUE MASS < 1.0 NG/ML (<3.6); CPK CREATINE PHOSPHOKINASE 51 U/L (26-192); CREATININE FOR GFR 0.93 MG/DL (0.55-1.30); GLOMERULAR FILTRATION RATE > 60.0 (>51); GLUCOSE, FASTING 104 MG/DL (70-100); LIPASE 175 U/L (73-393); MB/CK RELATIVE INDEX 1.96 (< OR =4); POTASSIUM SERUM 4.2 MEQ/L (3.5-5.1); SODIUM LEVEL 140 MEQ/L (136-145); TOTAL PROTEIN 7.3 GM/DL (6.4-8.2); TROPONIN I < 0.02 NG/ML (< 0.10)
[2018-05-28] MEDS ORDERED: KETOROLAC 30 MG/ML VIAL (J1885) IV ONE (14:15)
[2018-05-28] MEDS ORDERED: NS 1,000 ML IV ONE (14:15)
[2018-05-28] MEDS ORDERED: ONDANSETRON 4MG/2ML VIAL (J2405) IV ONE (14:15)
--- NOTE | 2018-05-28 15:00 | REP ---
Clinical: Flank pain. History of esophageal carcinoma. Technique: Axial noncontrast images from the lung bases to the pubic symphysis with coronal and sagittal re-formations. Comparison: 06/01/2017. Findings: Lung bases demonstrate linear fibroatelectatic changes in the right lower lobe. Hepatomegaly. Spleen, pancreas, bilateral adrenal glands and kidneys are stable and essentially within normal limits for noncontrast evaluation. No intrarenal or obstructing ureteral calculi are identified. Evaluation of the enteric system raises the possibility of gastritis with gastric wall thickening extending to the antrum. There is no evidence for bowel obstruction. Normal terminal ileum and appendix are identified in the right lower quadrant. Scattered colonic diverticula noted without acute diverticulitis. Pelvis demonstrates normal bladder and age-appropriate uterus/adnexa. Mildly prominent lymph nodes within the mesentery and specifically the right lower quadrant raise the possibility of mesenteric adenitis. No ascites. No free air. No retroperitoneal adenopathy. Abdominal aorta without aneurysm. Musculoskeletal structures without focal osseous abnormality. Impression: 1. Linear fibroatelectatic changes at the right lower lobe are nonspecific and acute and/or chronic in nature. 2. Possible acute gastritis with gastric wall thickening extending to the antrum. 3. Few scattered mesenteric prominent lymph nodes extending to the right lower quadrant raise the possibility of adenitis. 4. No further acute abdominopelvic pathology appreciated. No ascites. No focal inflammatory stranding. Electronically Signed by Bismark Sal MD 05/28/2018 02:51 P
[2018-05-28] MEDS ORDERED: DICY1CAP8 PO (15:15)
[2018-05-28] MEDS ORDERED: DICYCLOMINE 10 MG CAP PO ONE (15:15)
[2018-05-28] MEDS ORDERED: ZOFR4TAB14 PO (15:15)
[2018-05-28] MEDS ORDERED: CIPROFLOXACIN 500 MG TAB PO ONE (15:15)
[2018-05-28] MEDS ORDERED: CIPR-249 PO (15:15)
[2018-05-28 15:20] VITALS: BP 108/64
--- NOTE | 2018-05-29 16:45 | ECGEPIP ---
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
[2018-06-05] MEDS ORDERED: LOVA40TA PO (07:46)
[2018-06-05] MEDS ORDERED: PANT40TA3 PO (07:46)
== END 2018-05-28 15:26 | disposition home or self-care (01) ==
LOC: M ED 12:53
DX: K21.9 Gastro-esophageal reflux disease without esophagitis (principal); R19.7 Diarrhea, unspecified; R11.2 Nausea with vomiting, unspecified; R10.9 Unspecified abdominal pain
CPT/HCPCS: 36415; 74176; 80048; 80076; 81001; 82150; 82550; 82553; 83605; 83690; 84484; 85025; 93005; 96361; 96374; 96375; 99284; J1885; J2405

== ENCOUNTER 2018-06-06 12:22 | Day surgery (SDC) | payer OTHER ==
[~2018-06-06] VITALS: Ht 165.1 cm; Wt 104.3 kg
[~2018-06-06 12:22] MED LIST changes: +CIPR-249 PO; +DICY1CAP8 PO; +LIDOCAINE 2% INJ 100 MG/5 ML SDV (FOR ANES.) As Ordered ONE; +PANT40TA3 PO; +PROPOFOL 200 MG/20 ML VIAL As Ordered ONE
[2018-06-06] MEDS ORDERED: NS 1,000 ML IV ONE (13:15)
--- NOTE | 2018-06-06 14:09 | ROOR ---
Patient Name: Teri Ackerman Procedure Date: 06/06/2018 1:42 PM Date of : 1965 Age: 52 Room: [facility] Gender: Female Note Status: Finalized Procedure: Upper GI endoscopy Indications: Gastroparesis, Personal history of malignant esophageal neoplasm Providers: Greg MARTINEZ MD Referring MD: Tashi Venegas MD Requesting Provider: Medicines: Monitored Anesthesia Care Complications: No immediate complications. Procedure: Pre-Anesthesia Assessment: - The heart rate, respiratory rate, oxygen saturations, blood pressure, adequacy of pulmonary ventilation, and response to care were monitored throughout the procedure. The Endoscope was introduced through the mouth, and advanced to the second part of duodenum. The upper GI endoscopy was accomplished without difficulty. The patient tolerated the procedure well. 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 This was biopsied with a cold forceps for histology. A post mucosectomy scar was found in the upper third of the esophagus. The scar tissue was healthy in appearance. This was biopsied with a cold forceps for histology. The Z-line was variable and was found 39 cm from the incisors. This was biopsied with a cold forceps for histology. The entire examined stomach was normal. The examined duodenum was normal. Impression: - Ectopic gastric mucosa in the upper third of the esophagus. Biopsied. - Scar in the upper third of the esophagus. Biopsied. - Z-line variable, 39 cm from the incisors. Biopsied. - Normal stomach. - Normal examined duodenum. Recommendation: - Continue present medications. - Telephone endoscopist for pathology results in 2 weeks. - Gastroparesis diet: - Eat smaller, more frequent meals throughout the day. - Low fat diet. - Liquid/soft foods are tolerated better than solid foods. - Low fiber/well cooked vegetables are tolerated better than high fiber/fibrous foods/raw vegetables. - Avoid medications that inhibit gastric/intestinal motility such as narcotic medications. - Repeat upper endoscopy in 6 months for surveillance. Greg Martinez MD Greg MARTINEZ MD 06/06/2018 2:09:13 PM This report has been signed electronically. Number of Addenda: 0 Note Initiated On: 06/06/2018 1:42 PM Estimated Blood Loss: Estimated blood loss: none.
[2018-06-06 14:25] VITALS: BP 119/75
== END 2018-06-06 14:39 | disposition home or self-care (01) ==
LOC: M OPP 12:22
PROVIDERS: ATTEND Internal Medicine Gastroenterology
DX: Z85.01 Personal history of malignant neoplasm of esophagus (principal); K31.84 Gastroparesis; D13.0 Benign neoplasm of esophagus; K22.8 Other specified diseases of esophagus; E11.9 Type 2 diabetes mellitus without complications; E78.00 Pure hypercholesterolemia, unspecified; E87.6 Hypokalemia; Z82.49 Family history of ischemic heart disease and other diseases of the circulatory system; Z79.84 Long term (current) use of oral hypoglycemic drugs; Z79.899 Other long term (current) drug therapy; Z88.2 Allergy status to sulfonamides; Z87.891 Personal history of nicotine dependence

== ENCOUNTER → 2018-06-25 | Outpatient (CLI) | payer OTHER ==
[~2018-06-25] MED LIST changes: -LIDOCAINE 2% INJ 100 MG/5 ML SDV (FOR ANES.) As Ordered ONE; -PROPOFOL 200 MG/20 ML VIAL As Ordered ONE
[2018-06-25 10:14] LABS: BASO # 0.1 10^3/uL (0.0-0.2); BASO % 0.6 % (0.0-1.0); EOS # 0.4 10^3/uL (0.0-0.50); EOS % 5.3 % (0.0-3.0); HEMATOCRIT 39.2 % (36.0-47.0); HEMOGLOBIN 12.9 g/dl (12.0-15.5); LYMPH % 23.6 % (24.0-44.0); MEAN CORPUSCULAR HEMOGLOBIN 28.5 pg (27.0-33.0); MEAN CORPUSCULAR HGB CONC 32.9 g/dl (32.0-36.5); MEAN CORPUSCULAR VOLUME 86.5 fl (80.0-96.0); MONO # 0.7 10^3/uL (0.0-0.8); MONO % 8.4 % (0.0-5.0); NEUTROPHILS # 5.1 10^3/uL (1.8-7.7); NEUTROPHILS % 61.9 % (36.0-66.0); PLATELET COUNT, AUTOMATED 252 10^3/uL (150-450); RED BLOOD COUNT 4.53 10^6/uL (4.00-5.40); WHITE BLOOD COUNT 8.3 10^3/uL (4.0-10.0)
[2018-06-25 10:51] LABS: ALBUMIN 3.5 GM/DL (3.2-5.2); ALT/SGPT 32 U/L (12-78); BILIRUBIN,TOTAL 0.3 MG/DL (0.2-1.0); BLOOD UREA NITROGEN 25 MG/DL (7-18); CALCIUM LEVEL 9.5 MG/DL (8.5-10.1); CARBON DIOXIDE LEVEL 25 MEQ/L (21-32); CHLORIDE LEVEL 108 MEQ/L (98-107); CREATININE FOR GFR 0.95 MG/DL (0.55-1.30); GLOMERULAR FILTRATION RATE > 60.0 (>51); GLUCOSE, FASTING 111 MG/DL (70-100); SODIUM LEVEL 141 MEQ/L (136-145); TOTAL PROTEIN 6.6 GM/DL (6.4-8.2)
[2018-06-25 11:18] LABS: HEMOGLOBIN A1c 6.3 %
== END ==
LOC: M LAB 09:41
PROVIDERS: ATTEND Family Medicine
DX: N18.3 Chronic kidney disease, stage 3 (moderate) (principal); R73.01 Impaired fasting glucose

== ENCOUNTER → 2018-10-28 | Outpatient (REF) | payer OTHER ==
[~2018-10-28] MED LIST changes: +TRIA0.1C60 TOP; -TRIA1CR TOP
[2018-10-28 09:54] LABS: BASO % 0.5 % (0.0-1.0); EOS # 0.2 10^3/uL (0.0-0.50); EOS % 3.2 % (0.0-3.0); HEMATOCRIT 44.6 % (36.0-47.0); HEMOGLOBIN 14.3 g/dl (12.0-15.5); LYMPH # 2.2 10^3/uL (1.5-4.5); LYMPH % 28.9 % (24.0-44.0); MEAN CORPUSCULAR HEMOGLOBIN 28.7 pg (27.0-33.0); MEAN CORPUSCULAR HGB CONC 32.1 g/dl (32.0-36.5); MEAN CORPUSCULAR VOLUME 89.4 fl (80.0-96.0); MONO # 0.6 10^3/uL (0.0-0.8); MONO % 8.3 % (0.0-5.0); NEUTROPHILS # 4.5 10^3/uL (1.8-7.7); NEUTROPHILS % 58.8 % (36.0-66.0); PLATELET COUNT, AUTOMATED 254 10^3/uL (150-450); RED BLOOD COUNT 4.99 10^6/uL (4.00-5.40); WHITE BLOOD COUNT 7.6 10^3/uL (4.0-10.0)
[2018-10-28 10:35] LABS: ALBUMIN 3.9 GM/DL (3.2-5.2); BILIRUBIN,TOTAL 0.3 MG/DL (0.2-1.0); CREATININE FOR GFR 1.06 MG/DL (0.55-1.30); FREE T4 0.92 NG/DL (0.76-1.46); GLOMERULAR FILTRATION RATE 57.5 (>51); PERCENT SATURATION 17.3 % (13.2-45.0); POTASSIUM SERUM 4.6 MEQ/L (3.5-5.1); THYROID STIMULATING HORMONE 2.88 uIU/ML (0.358-3.740)
[2018-10-28 11:25] LABS: HEMOGLOBIN A1c 6.2 %
== END ==
LOC: M SFHCPLAZ 08:38
PROVIDERS: ATTEND Physician Assistant Medical
DX: R53.82 Chronic fatigue, unspecified (principal); R73.01 Impaired fasting glucose; N18.3 Chronic kidney disease, stage 3 (moderate); G25.81 Restless legs syndrome; E53.8 Deficiency of other specified B group vitamins

== ENCOUNTER 2019-01-23 11:03 | Day surgery (SDC) | payer OTHER ==
[~2019-01-23] VITALS: Ht 162.6 cm; Wt 109.8 kg
[~2019-01-23 11:03] MED LIST changes: +ROPI4TAB21 PO
[2019-01-23] MEDS ORDERED: TACR0.5C3 PO (12:21)
[2019-01-23] MEDS ORDERED: VITA500T40 PO (12:21)
[2019-01-23] MEDS ORDERED: PROPOFOL 200 MG/20 ML VIAL As Ordered ONE ×2 (12:59→13:29)
[2019-01-23] MEDS ORDERED: LIDOCAINE 2% INJ 100 MG/5 ML SDV (FOR ANES.) As Ordered ONE (12:59)
--- NOTE | 2019-01-23 13:20 | ROOR ---
Patient Name: Teri Ackerman Procedure Date: 01/23/2019 12:58 PM Date of : 1965 Age: 53 Room: [facility] Gender: Female Note Status: Finalized Procedure: Upper GI endoscopy Indications: Surveillance for malignancy due to personal history of proximal esophageal cancer. (s/p endoscopic mucosectomy), Gastroparesis. Providers: Greg MARTINEZ MD Referring MD: Tashi Venegas MD Requesting Provider: Medicines: Monitored Anesthesia Care Complications: No immediate complications. Procedure: Pre-Anesthesia Assessment: - The heart rate, respiratory rate, oxygen saturations, blood pressure, adequacy of pulmonary ventilation, and response to care were monitored throughout the procedure. The Endoscope was introduced through the mouth, and advanced to the second part of duodenum. The upper GI endoscopy was accomplished without difficulty. The patient tolerated the procedure well. Findings: A small post mucosectomy scar and inlet patch was found in the proximal esophagus, 17 cm from the incisors. The scar tissue was healthy in appearance. Biopsies were taken with a cold forceps for histology. The Z-line was irregular and was found 38 cm from the incisors. This was biopsied with a cold forceps for histology. The entire examined stomach was normal. The examined duodenum was normal. Impression: - Inlet patch with scar in the proximal esophagus. Biopsied. - Z-line irregular, 38 cm from the incisors. Biopsied. - Normal stomach. - Normal examined duodenum. Recommendation: - Await pathology results. - Observe patient's clinical course. - Continue present medications. - Telephone endoscopist for pathology results in 2 weeks. - If todays biopsies are benign/unremarkable, then will space endoscopic surveillance to once a year. Greg Martinez MD Greg MARTINEZ MD 01/23/2019 1:19:45 PM Electronically signed by Greg MARTINEZ MD Number of Addenda: 0 Note Initiated On: 01/23/2019 12:58 PM Estimated Blood Loss: Estimated blood loss: none.
[2019-01-23 13:36] VITALS: BP 159/86
== END 2019-01-23 13:45 | disposition home or self-care (01) ==
LOC: M OPP 11:03
PROVIDERS: ATTEND Internal Medicine Gastroenterology
DX: Z08 Encounter for follow-up examination after completed treatment for malignant neoplasm (principal); Z85.01 Personal history of malignant neoplasm of esophagus; K22.8 Other specified diseases of esophagus; E11.9 Type 2 diabetes mellitus without complications; I10 Essential (primary) hypertension; Z79.84 Long term (current) use of oral hypoglycemic drugs; Z79.899 Other long term (current) drug therapy; Z88.2 Allergy status to sulfonamides; Z87.891 Personal history of nicotine dependence

== ENCOUNTER → 2019-02-26 | Outpatient (CLI) | payer OTHER ==
[~2019-02-26] MED LIST changes: +METF-791 PO; -METF500T4 PO; +TACR0.5C3 PO; +VITA500T40 PO
[2019-02-26 09:27] LABS: APPEARANCE, URINE CLEAR (CLEAR); BACTERIA, URINE AUTO 1+ (NEGATIVE); BILIRUBIN, URINE AUTO NEGATIVE (NEGATIVE); BLOOD, URINE BLOOD 1+ (NEGATIVE); COLOR, URINE STRAW (YELLOW); GLUCOSE, URINE (UA) AUTO NEGATIVE (NEGATIVE); KETONE, URINE AUTO NEGATIVE (NEGATIVE); LEUKOCYTE ESTERASE, URINE AUTO 1+ (NEGATIVE); MUCUS, URINE SMALL (NEGATIVE); NITRITE, URINE AUTO NEGATIVE (NEGATIVE); PROTEIN, URINE AUTO NEGATIVE (NEGATIVE); RBC, URINE AUTO 12 /HPF (0-3); SPECIFIC GRAVITY URINE AUTO 1.017 (1.002-1.035); SQUAMOUS EPITHELIAL CELL UR AU 2 /HPF (0-6); UROBILINOGEN, URINE AUTO 0.2 mg/dL (0.0-2.0); WBC, URINE AUTO 9 /HPF (0-3)
[2019-02-26 10:05] LABS: ALBUMIN 3.4 GM/DL (3.2-5.2); ALT/SGPT 38 U/L (12-78); BILIRUBIN,TOTAL 0.4 MG/DL (0.2-1.0); BLOOD UREA NITROGEN 27 MG/DL (7-18); CALCIUM LEVEL 9.8 MG/DL (8.5-10.1); CARBON DIOXIDE LEVEL 27 MEQ/L (21-32); CHLORIDE LEVEL 108 MEQ/L (98-107); CHOLESTEROL LEVEL 159 MG/DL (<200); CHOLESTEROL RISK RATIO 2.239 (<5); CPK CREATINE PHOSPHOKINASE 108 U/L (26-192); FREE T4 1.18 NG/DL (0.76-1.46); GLOMERULAR FILTRATION RATE 54.9 (>51); GLUCOSE, FASTING 84 MG/DL (70-100); HDL CHOLESTEROL 71 MG/DL (>40); LDL CHOLESTEROL 74 MG/DL (<100); MAGNESIUM LEVEL 1.6 MG/DL (1.8-2.4); NON-HDL-C 88 MG/DL; POTASSIUM SERUM 4.4 MEQ/L (3.5-5.1); SODIUM LEVEL 142 MEQ/L (136-145); TOTAL PROTEIN 6.8 GM/DL (6.4-8.2); TRIGLYCERIDES LEVEL 70 MG/DL (<150)
[2019-02-26 10:07] LABS: THYROID PEROXIDASE ANTIBODY > 1300.0 U/ML (<60.0)
[2019-02-26 10:08] LABS: CREATININE, URINE 63.5 MG/DL; HEMOGLOBIN A1c 5.8 %; MALB URINE SIEMENS 15.2 MG/L; MAU/CREAT RATIO 23.9 MCG/MG (0.0-30.0)
--- NOTE | 2019-02-26 11:43 | REP ---
CT chest without contrast: Low-dose lung cancer screening study. History: Nicotine dependence. Comparison CT study of the chest is from January 25, 2017. There is also a May 10, 2016 prior study. There is a band-like zone of linear plate-like atelectasis in the right lower lobe. This was not previously apparent. There is a 9 mm endobronchial lesion in the right lower lobe bronchus at its segmental trifurcation which merits further evaluation. An endobronchial neoplasm must be suspected, possibly bronchial carcinoid. There is no evidence of pulmonary parenchymal nodule. No pulmonary parenchymal mass lesion is observed. The exam is otherwise unremarkable. Some vascular calcification is seen in the coronary distribution. There are clips in the right upper quadrant post cholecystectomy. Impression: 9 mm endobronchial soft tissue nodule in the right lower lobe bronchus with associated discoid atelectasis in the right lower lobe. Lung-RADS category 4A. Recommend bronchoscopy. Rule out endobronchial carcinoid. Electronically Signed by Ronnell Bautista MD 02/26/2019 01:00 P
== END ==
LOC: M RAD 08:24
PROVIDERS: ATTEND Family Medicine
DX: F17.210 Nicotine dependence, cigarettes, uncomplicated (principal)

== ENCOUNTER 2019-04-03 06:38 | Day surgery (SDC) | payer OTHER ==
[~2019-04-03] VITALS: Ht 165.1 cm; Wt 108.9 kg
[~2019-04-03 06:38] MED LIST changes: +ALBUTEROL SULFATE 2.5 MG/0.5 ML INH NEB SOLN INH ONE; +CLOB5CR TOP; +D5W 1,000 ML IV SCH; +LIDOCAINE 4% INJ 5 ML AMP INH ONE; +METF750T36 PO
[2019-04-03] MEDS ORDERED: fentaNYL 100 MCG/2 ML INJECTION (J3010) As Ordered ONE (07:02)
[2019-04-03] MEDS ORDERED: MIDAZOLAM INJ 2 MG/2 ML VIAL (J2250) As Ordered ONE ×3 (07:03→07:38)
[2019-04-03] MEDS ORDERED: EPINEPHrine 1MG/10ML SYRINGE 1.5IN As Ordered ONE (07:07)
[2019-04-03] MEDS ORDERED: LIDOCAINE 1% MDV 20ML VIAL As Ordered ONE ×2 (07:07→07:47)
[2019-04-03] MEDS ORDERED: LIDOCAINE VISCOUS 2% SOLN 15ML UDC As Ordered ONE (07:07)
[2019-04-03] MEDS ORDERED: PHENYLEPHRINE 0.5% NASAL SPRAY 15 ML As Ordered ONE (07:07)
[2019-04-03] MEDS ORDERED: THROMBIN SOLN 5,000 UNITS VIAL As Ordered ONE (07:07)
[2019-04-03] MEDS ORDERED: CETACAINE SPRAY 5GM As Ordered ONE (07:08)
--- NOTE | 2019-04-03 08:23 | RO ---
DATE OF PROCEDURE: 04/03/2019 PREOPERATIVE DIAGNOSIS: Abnormal chest x-ray/CAT scan. POSTOPERATIVE DIAGNOSIS: Abnormal chest x-ray/CAT scan. PROCEDURE: Fiberoptic bronchoscopy with washes, brush biopsies and photos. SURGEON: Dr. 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 Conscious sedation with 8 mg of intravenous Versed and 50 mcg of intravenous fentanyl given sequentially and titrated for effect. OTHER MEDICATIONS: 5000 units of topical thrombin. Informed consent was obtained prior to the procedure. Anesthesia OPERATIVE FINDINGS: Significant endobronchial polypoid lesion of the right lower lobe. DESCRIPTION OF PROCEDURE: After the patient was identified and the above anesthesia given, the fiberoptic bronchoscope was easily passed via the right nares. Hypopharynx was entered. Somewhat crowded. Vocal cords moved well. Trachea was widely patent. Nadine was sharp and moved well. Both main stem bronchi widely patent. Left lung was entered first with three subsegments, but all other segments and subsegments and upper and lower lobes easily identified and widely patent without obvious endobronchial mucosal abnormalities. The right lung was then entered. Right main stem widely patent. 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 The bronchus intermedius widely patent. Middle lobe easily identified. The bronchus in the right lower lobe had a large polypoid lesion which did appear to attach in the anterior surface. Multiple biopsies as well as brushes were taken. Areas were lavaged. Only minimal bleeding was encountered. Topical thrombin was applied. The scope was not able to be passed beyond it. When adequate hemostasis was achieved, the scope was withdrawn and the procedure terminated. Oxygen saturation remained greater than 97% throughout the exam. The patient was taken to the recovery room in good and stable condition. No immediate complications of conscious sedation were identified.
[2019-04-03 08:50] VITALS: BP 153/89
== END 2019-04-03 09:06 | disposition home or self-care (01) ==
LOC: M OPP 06:38
PROVIDERS: ATTEND Internal Medicine Pulmonary Disease
DX: D14.31 Benign neoplasm of right bronchus and lung (principal)
CPT/HCPCS: 31623; 31624; 31628; 87070; 87077; 87102; 87116; 87186; 87205; 87206; 88104; 88305; J2250; J3010

== ENCOUNTER → 2019-04-28 | Outpatient (CLI) | payer OTHER ==
[~2019-04-28] MED LIST changes: -ALBUTEROL SULFATE 2.5 MG/0.5 ML INH NEB SOLN INH ONE; -D5W 1,000 ML IV SCH; -LIDOCAINE 4% INJ 5 ML AMP INH ONE
--- NOTE | 2019-04-28 09:37 | REPMRS ---
Patient History The patient states she has not had a clinical breast exam in over a year. Family history of colorectal cancer at age 50 or over in maternal aunt. Took hormonal contraceptives for 3 years. 3D TOMOSYNTHESIS WAS PERFORMED. [facility]%. Digital Mammo Screening Bilat: April 28, 2019 - Exam #: [id number] Bilateral CC and MLO view(s) were taken. Technologist: Tammy Robbins, Technologist Prior study comparison: April 24, 2018, bilateral digital mammo screening bilat performed at [facility]. April 23, 2017, bilateral digital mammo screening bilat performed at [facility]. FINDINGS: There are scattered fibroglandular densities. There has been no change in the appearance of the mammogram from the prior studies. There is a mild amount of residual fibroglandular tissue which is fairly symmetric. There is no interval development of dominant mass, architectural distortion, or clustered microcalcification suggestive of malignancy. Assessment: BI-RADS/ACR category 1 mammogram. Negative Mammogram. Recommendation Routine screening mammogram in 1 year (for women over age 40). This mammogram was interpreted with the aid of an FDA-approved computer-aided dectection system. Electronically Signed By: Greg Hollingsworth MD 04/28/19 0901
== END ==
LOC: M RAD 08:31
PROVIDERS: ATTEND Family Medicine
DX: Z12.31 Encounter for screening mammogram for malignant neoplasm of breast (principal)

== ENCOUNTER → 2019-07-17 | Outpatient (REF) | payer OTHER | LOC: M LAB REF 12:29 | PROVIDERS: ATTEND Physician Assistant | DX: J34.0 Abscess, furuncle and carbuncle of nose (principal) ==

== ENCOUNTER → 2019-08-01 | Outpatient (CLI) | payer OTHER ==
--- NOTE | 2019-08-05 19:17 | SLEEPCENT ---
DATE OF PROCEDURE: 08/01/2019 Ordered by: Dr. Del Real Nocturnal polysomnography was performed for evaluation of sleep physiology in this patient with a history of excessive somnolence, nonrestorative sleep and snoring who has comorbidities of diabetes mellitus and hypertension. 8 hours of data were reviewed. There were 380.5 minutes of sleep identified. Sleep latency was prolonged at 40.5 minutes. REM latency was quite prolonged 324 minutes. Sleep architecture showed poor progression. Overall sleep efficiency was 82.3%. There was a reduction in REM time. Electrocardiogram shows an underlying sinus rhythm with some artifact; occasional PVCs were noted. Average heart rate 88 beats per minute. EEG showed coarsening in background consistent with medication effect (amitriptyline). There were only 12 respiratory events identified of 10 seconds in duration or greater for an apnea-hypopnea index of 1.9. The events were obstructive hypopneas that were seen in stage REM. They were not exclusive to sleep position. Snoring, however, was noted over the entire study and respiratory related arousals occurred three times per hour. There were some minor oxygen desaturations. On one occasion saturation fell below 90%. There was significant limb activity. Four trains of 30 events were appreciated. Limb movement arousal index was 11.7. IMPRESSION 1. Possible periodic limb movement disorder (G47.61), limb movement arousal index 11.7. 2. Snoring. 3. Medication effect (amitriptyline). RECOMMENDATIONS Interventions to reduce the frequency of arousal from limb activity may be helpful.
== END ==
LOC: M SLEEP 19:32 → EEVIPCON 20:00
PROVIDERS: ATTEND Internal Medicine Pulmonary Disease
DX: G47.30 Sleep apnea, unspecified (principal)

== ENCOUNTER → 2019-08-05 | Outpatient (CLI) | payer OTHER ==
[2019-08-05 09:37] LABS: APPEARANCE, URINE CLEAR (CLEAR); BACTERIA, URINE AUTO 1+ (NEGATIVE); BILIRUBIN, URINE AUTO NEGATIVE (NEGATIVE); BLOOD, URINE BLOOD NEGATIVE (NEGATIVE); COLOR, URINE YELLOW (YELLOW); GLUCOSE, URINE (UA) AUTO NEGATIVE (NEGATIVE); KETONE, URINE AUTO NEGATIVE (NEGATIVE); LEUKOCYTE ESTERASE, URINE AUTO 1+ (NEGATIVE); MUCUS, URINE SMALL (NEGATIVE); NITRITE, URINE AUTO NEGATIVE (NEGATIVE); PROTEIN, URINE AUTO NEGATIVE (NEGATIVE); RBC, URINE AUTO 4 /HPF (0-3); SPECIFIC GRAVITY URINE AUTO 1.016 (1.002-1.035); SQUAMOUS EPITHELIAL CELL UR AU 2 /HPF (0-6); UROBILINOGEN, URINE AUTO 0.2 mg/dL (0.0-2.0); WBC, URINE AUTO 12 /HPF (0-3)
[2019-08-05 09:39] LABS: BASO # 0.1 10^3/uL (0.0-0.2); BASO % 0.7 % (0.0-1.0); EOS # 0.2 10^3/uL (0.0-0.5); EOS % 2.6 % (0.0-3.0); HEMATOCRIT 41.9 % (36.0-47.0); HEMOGLOBIN 13.4 g/dl (12.0-15.5); LYMPH # 2.1 10^3/uL (1.5-5.0); LYMPH % 30.5 % (24.0-44.0); MEAN CORPUSCULAR HEMOGLOBIN 28.2 pg (27.0-33.0); MEAN CORPUSCULAR VOLUME 88.2 fl (80.0-96.0); MONO # 0.6 10^3/uL (0.0-0.8); MONO % 8.1 % (0.0-5.0); NEUTROPHILS % 57.8 % (36.0-66.0); PLATELET COUNT, AUTOMATED 232 10^3/uL (150-450); RED BLOOD COUNT 4.75 10^6/uL (4.00-5.40); WHITE BLOOD COUNT 6.9 10^3/uL (4.0-10.0)
[2019-08-05 10:08] LABS: ALBUMIN 3.8 GM/DL (3.2-5.2); BILIRUBIN,TOTAL 0.3 MG/DL (0.2-1.0); CALCIUM LEVEL 9.4 MG/DL (8.5-10.1); CREATININE FOR GFR 1.11 MG/DL (0.55-1.30); FREE T4 1.21 NG/DL (0.76-1.46); GLOMERULAR FILTRATION RATE 54.3 (>51); POTASSIUM SERUM 4.3 MEQ/L (3.5-5.1); THYROID STIMULATING HORMONE 2.3 uIU/ML (0.358-3.740); TOTAL PROTEIN 6.7 GM/DL (6.4-8.2)
[2019-08-05 10:12] LABS: CREATININE, URINE 70.6 MG/DL; MALB URINE SIEMENS 7.5 MG/L; MAU/CREAT RATIO 10.6 MCG/MG (0.0-30.0)
[2019-08-05 19:06] LABS: HEMOGLOBIN A1c 6.2 %
== END ==
LOC: M LAB 08:47
PROVIDERS: ATTEND Family Medicine
DX: R73.01 Impaired fasting glucose (principal); E06.3 Autoimmune thyroiditis

== ENCOUNTER 2019-11-02 19:14 | Emergency (ER) | payer OTHER ==
[~2019-11-02] VITALS: Ht 165.1 cm; Wt 109.1 kg
[~2019-11-02 19:14] MED LIST changes: -DICY20TA PO; +DICY20TA3 PO; -METF-791 PO; +METF-838 PO; +PANT40TA29 PO; -PANT40TA3 PO
[2019-11-02] MEDS ORDERED: ROPI0.5T3 (19:40)
[2019-11-02] MEDS ORDERED: ROBA750T4 PO (20:37)
[2019-11-02] MEDS ORDERED: PRED20TA PO (20:37)
[2019-11-02] MEDS ORDERED: ASPE16CR TOP (20:37)
[2019-11-02] MEDS ORDERED: predniSONE 20 MG TAB PO ONE (20:45)
[2019-11-02] MEDS ORDERED: LIDOCAINE 5% (LIDODERM) PATCH TD ONE (20:45)
[2019-11-02] MEDS ORDERED: methocarbamoL 750 MG TAB PO ONE (20:45)
[2019-11-02 20:58] VITALS: BP 139/81
[2019-11-02] MEDS ORDERED: **NOTE PATIENT COMMENT** MISC XX SCH (21:00)
== END 2019-11-02 20:59 | disposition home or self-care (01) ==
LOC: M ED 19:14
DX: M54.5 Low back pain (principal); Z87.891 Personal history of nicotine dependence; Z88.2 Allergy status to sulfonamides; I10 Essential (primary) hypertension; E11.9 Type 2 diabetes mellitus without complications; E78.49 Other hyperlipidemia

== ENCOUNTER 2019-11-19 14:09 | Outpatient (RCR) | payer OTHER ==
[~2019-11-19 14:09] MED LIST changes: +ASPE16CR TOP; +DICY20TA PO; -DICY20TA3 PO; -PANT40TA29 PO; +PANT40TA3 PO; +PRED20TA PO; +ROBA750T4 PO; +ROPI0.5T3
== END 2019-11-25 ==
LOC: M PT 14:09
PROVIDERS: ATTEND Physician Assistant
DX: M70.61 Trochanteric bursitis, right hip (principal); M43.06 Spondylolysis, lumbar region

== ENCOUNTER 2019-12-19 08:45 | Outpatient (RCR) | payer OTHER ==
[~2019-12-19 08:45] MED LIST changes: +PANT40TA29 PO; -PANT40TA3 PO
== END 2019-12-26 ==
LOC: M PT 08:45
PROVIDERS: ATTEND Physician Assistant
DX: M71.151 Other infective bursitis, right hip (principal)

== ENCOUNTER → 2020-03-17 | Outpatient (CLI) | payer OTHER ==
--- NOTE | 2020-03-17 09:22 | REP ---
INDICATION: SMOKER, LUNG CANCER SCREENING COMPARISON: 02/26/2019 TECHNIQUE: Axial noncontrast images from the thoracic inlet to the upper abdomen using low-dose lung screening technique (LDCT). FINDINGS: The bilateral lung aviles are well aerated, symmetric and clear. A very minimal amount of linear scarring in the periphery of the right lower lobe related to previous atelectasis is identified. No consolidation, suspicious nodule or mass lesion. No pleural effusion or pneumothorax. The tracheobronchial tree is patent and clear, and the previously noted endobronchial opacity into the right lower lobe bronchus has resolved. IMPRESSION: Lung rads category 1. No suspicious nodule or mass lesion appreciated. Previously noted endobronchial opacity has resolved. Management recommendations include annual low-dose CT evaluation <Electronically signed by Bismark Sal > 03/17/20 [id number]
== END ==
LOC: M RAD 08:54
PROVIDERS: ATTEND Nurse Practitioner Adult Health
DX: Z12.2 Encounter for screening for malignant neoplasm of respiratory organs (principal); F17.218 Nicotine dependence, cigarettes, with other nicotine-induced disorders

== ENCOUNTER → 2020-04-21 | Outpatient (CLI) | payer OTHER | LOC: M LABSMTC 12:42 | PROVIDERS: ATTEND Anesthesiology | DX: Z01.812 Encounter for preprocedural laboratory examination (principal); Z20.828 Contact with and (suspected) exposure to other viral communicable diseases ==

== ENCOUNTER 2020-04-26 14:52 | Day surgery (SDC) | payer OTHER ==
[~2020-04-26] VITALS: Ht 162.6 cm; Wt 108.9 kg
[~2020-04-26 14:52] MED LIST changes: +NS 1,000 ML IV ONE; +fentaNYL 100 MCG/2 ML INJECTION (J3010) As Ordered ONE; +propofoL 200 MG/20 ML VIAL As Ordered ONE
[2020-04-26] MEDS ORDERED: LIDOCAINE 2% 100MG/5ML SDV (FOR ANES.) As Ordered ONE (16:30)
--- NOTE | 2020-04-26 16:54 | ROOR ---
Patient Name: Teri Ackerman Procedure Date: 04/26/2020 4:28 PM Date of : 1965 Age: 54 Room: [facility] Gender: Female Note Status: Finalized Procedure: Upper GI endoscopy Indications: Surveillance for malignancy due to personal history of esophageal cancer (Inlet patch at 18 cm with adenoCA invading muscularis mucosae/resection margins free). s/p endoscopic resection. Providers: Greg MARTINEZ MD Referring MD: Tashi Venegas MD Requesting Provider: Medicines: Monitored Anesthesia Care Complications: No immediate complications. Procedure: Pre-Anesthesia Assessment: - The heart rate, respiratory rate, oxygen saturations, blood pressure, adequacy of pulmonary ventilation, and response to care were monitored throughout the procedure. The Endoscope was introduced through the mouth, and advanced to the second part of duodenum. The upper GI endoscopy was accomplished without difficulty. The patient tolerated the procedure well. Findings: Two inlet patches/salmon-colored mucosa was present in the proximal esophagus. No other visible abnormalities were present. Biopsies were taken with a cold forceps for histology. The exam was otherwise without abnormality. Impression: - Inlet patch/Camino-colored mucosa in the very proximal esophagus. Biopsied. - The examination was otherwise normal. Recommendation: - Telephone endoscopist for pathology results in 2 weeks. - If pathology normal/benign, repeat upper endoscopy in 3 years for surveillance. Procedure Code(s): --- Professional --- 00530, Esophagogastroduodenoscopy, flexible, transoral; with biopsy, single or multiple Diagnosis Code(s): --- Professional --- Z85.01, Personal history of malignant neoplasm of esophagus K22.8, Other specified diseases of esophagus CPT copyright 2019 [employer]. All rights reserved. The codes documented in this report are preliminary and upon insurance service representative review may be revised to meet current compliance requirements. Greg Martinez MD Greg MARTINEZ MD 04/26/2020 4:54:02 PM Electronically signed by Greg MARTINEZ MD Number of Addenda: 0 Note Initiated On: 04/26/2020 4:28 PM Estimated Blood Loss: Estimated blood loss: none.
[2020-04-26 17:06] VITALS: BP 169/86
== END 2020-04-26 17:09 | disposition home or self-care (01) ==
LOC: M OPP 14:52
PROVIDERS: ATTEND Internal Medicine Gastroenterology
DX: K22.8 Other specified diseases of esophagus (principal); Z85.01 Personal history of malignant neoplasm of esophagus; E11.9 Type 2 diabetes mellitus without complications; I10 Essential (primary) hypertension; Z79.899 Other long term (current) drug therapy; Z88.2 Allergy status to sulfonamides; Z08 Encounter for follow-up examination after completed treatment for malignant neoplasm
CPT/HCPCS: 43239; 88305; J3010

== ENCOUNTER → 2020-07-06 | Outpatient (CLI) | payer OTHER ==
[~2020-07-06] MED LIST changes: -DICY20TA PO; +DICY20TA3 PO; -NS 1,000 ML IV ONE; -fentaNYL 100 MCG/2 ML INJECTION (J3010) As Ordered ONE; -propofoL 200 MG/20 ML VIAL As Ordered ONE
[2020-07-06 11:21] LABS: BASO # 0.1 10^3/uL (0.0-0.2); BASO % 0.7 % (0.0-1.0); EOS # 0.3 10^3/uL (0.0-0.5); EOS % 3.2 % (0.0-3.0); HEMATOCRIT 42.1 % (36.0-47.0); HEMOGLOBIN 13.6 g/dl (12.0-15.5); LYMPH # 2.3 10^3/uL (1.5-5.0); LYMPH % 27.6 % (24.0-44.0); MEAN CORPUSCULAR HEMOGLOBIN 28.1 pg (27.0-33.0); MEAN CORPUSCULAR HGB CONC 32.3 g/dl (32.0-36.5); MONO # 0.7 10^3/uL (0.0-0.8); NEUTROPHILS % 60.1 % (36.0-66.0); PLATELET COUNT, AUTOMATED 256 10^3/uL (150-450); RED BLOOD COUNT 4.84 10^6/uL (4.00-5.40); WHITE BLOOD COUNT 8.3 10^3/uL (4.0-10.0)
[2020-07-06 11:51] LABS: ALT/SGPT 60 U/L (12-78); BILIRUBIN,TOTAL 0.2 MG/DL (0.2-1.0); BLOOD UREA NITROGEN 30 MG/DL (7-18); CARBON DIOXIDE LEVEL 29 MEQ/L (21-32); CHLORIDE LEVEL 108 MEQ/L (98-107); CREATININE FOR GFR 0.94 MG/DL (0.55-1.30); GLOMERULAR FILTRATION RATE > 60.0 (>51); GLUCOSE, FASTING 114 MG/DL (70-100); SODIUM LEVEL 142 MEQ/L (136-145); TRIGLYCERIDES LEVEL 142 MG/DL (<150)
[2020-07-06 11:52] LABS: ALBUMIN 3.6 GM/DL (3.2-5.2); CHOLESTEROL LEVEL 177 MG/DL (<200); CHOLESTEROL RISK RATIO 2.809 (<5); FERRITIN 177 NG/ML (8-252); FREE T4 0.91 NG/DL (0.76-1.46); HDL CHOLESTEROL 63 MG/DL (>40); LDL CHOLESTEROL 86 MG/DL (<100); NON-HDL-C 114 MG/DL; PTH INTACT 61.2 PG/ML (18.5-88.0); TOTAL 25(OH) VITAMIN D 77.2 NG/ML (30.0-100.0); TOTAL PROTEIN 6.7 GM/DL (6.4-8.2)
[2020-07-06 11:53] LABS: VITAMIN B12 LEVEL 955 PG/ML (247-911)
[2020-07-06 13:12] LABS: HEMOGLOBIN A1c 5.8 %
--- NOTE | 2020-07-07 04:04 | REP ---
INDICATION: MIXED HYPERLIPIDEMIA/ PT HAS LABS FIRST COMPARISON: None. TECHNIQUE: AP, lateral, bilateral oblique, and coned-down views of the lumbar spine. FINDINGS: Alignment and lordosis maintained. Vertebral bodies are intact. No acute fracture/compression injury or subluxation. No obvious spondylolysis or spondylolisthesis. Moderate degenerative changes at L2-3 include endplate sclerosis, marginal osteophytosis, and disc space narrowing. Remainder of the examination is relatively age-appropriate. IMPRESSION: Moderate focal degenerative spondylosis at L2-3 <Electronically signed by Bismark Sal > 07/07/20 [id number]
== END ==
LOC: M LAB 10:43
PROVIDERS: ATTEND Family Medicine
DX: E78.5 Hyperlipidemia, unspecified (principal)

== ENCOUNTER → 2020-07-07 | Outpatient (CLI) | payer OTHER ==
--- NOTE | 2020-07-07 11:59 | REPMRS ---
Patient History The patient states she has not had a clinical breast exam in over a year. Family history of colorectal cancer at age 50 or over in maternal aunt. Took hormonal contraceptives for 3 years. Digital Woman Screen Mammo: July 07, 2020 - Exam #: [id number] Bilateral CC and MLO view(s) were taken. Technologist: RT Emmanuel Prior study comparison: April 28, 2019, bilateral digital mammo screening bilat, performed at [facility]. April 24, 2018, bilateral digital mammo screening bilat, performed at [facility]. April 23, 2017, bilateral digital mammo screening bilat, performed at [facility]. FINDINGS: The breast tissue is almost entirely fat. The Volpara volumetric breast density category is: A. There has been no change in the appearance of the mammogram from the prior studies. There is no interval development of dominant mass, architectural distortion, or grouped microcalcification typical of malignancy. 3-D tomosynthesis shows no additional findings. Assessment: BI-RADS/ACR category 1 mammogram. Negative Mammogram. Recommendation Routine screening mammogram of both breasts in 1 year (for women over age 40). This patient's [facility] Lifetime Breast Cancer RIsk is estimated at 13.1 %. This mammogram was interpreted with the aid of an FDA-approved computer-aided dectection system. Electronically Signed By: Adam Bautista MD 07/07/20 [id number]
== END ==
LOC: M WHC 10:40
PROVIDERS: ATTEND Family Medicine
DX: Z12.31 Encounter for screening mammogram for malignant neoplasm of breast (principal); Z92.0 Personal history of contraception

== ENCOUNTER 2020-08-24 10:37 | Outpatient (RCR) | payer OTHER ==
[~2020-08-24 10:37] MED LIST changes: -AMIT10TA PO; +AMIT10TA7 PO
== END 2020-08-25 ==
LOC: M PT 10:37
PROVIDERS: ATTEND Family Medicine
DX: M47.816 Spondylosis without myelopathy or radiculopathy, lumbar region (principal)

== ENCOUNTER 2020-09-09 09:50 | Outpatient (RCR) | payer OTHER | END 2020-09-24 | LOC: M PT 09:50 | PROVIDERS: ATTEND Family Medicine | DX: M47.816 Spondylosis without myelopathy or radiculopathy, lumbar region (principal) ==

== ENCOUNTER → 2020-12-10 | Outpatient (CLI) | payer OTHER ==
[2020-12-10 10:58] LABS: BASO # 0.1 10^3/uL (0.0-0.2); BASO % 0.8 % (0.0-1.0); EOS # 0.2 10^3/uL (0.0-0.5); EOS % 2.4 % (0.0-3.0); HEMATOCRIT 40.8 % (36.0-47.0); HEMOGLOBIN 12.9 g/dl (12.0-15.5); LYMPH # 2.2 10^3/uL (1.5-5.0); LYMPH % 29.1 % (24.0-44.0); MEAN CORPUSCULAR HEMOGLOBIN 27.3 pg (27.0-33.0); MEAN CORPUSCULAR HGB CONC 31.6 g/dl (32.0-36.5); MEAN CORPUSCULAR VOLUME 86.4 fl (80.0-96.0); MONO # 0.6 10^3/uL (0.0-0.8); NEUTROPHILS # 4.4 10^3/uL (1.5-8.5); NEUTROPHILS % 59.3 % (36.0-66.0); PLATELET COUNT, AUTOMATED 231 10^3/uL (150-450); RED BLOOD COUNT 4.72 10^6/uL (4.00-5.40); WHITE BLOOD COUNT 7.4 10^3/uL (4.0-10.0)
[2020-12-10 11:38] LABS: ALBUMIN 3.6 GM/DL (3.2-5.2); ALT/SGPT 78 U/L (12-78); BILIRUBIN,TOTAL 0.4 MG/DL (0.2-1.0); BLOOD UREA NITROGEN 25 MG/DL (7-18); CALCIUM LEVEL 9.2 MG/DL (8.5-10.1); CARBON DIOXIDE LEVEL 30 MEQ/L (21-32); CHLORIDE LEVEL 110 MEQ/L (98-107); CHOLESTEROL LEVEL 185 MG/DL (<200); CHOLESTEROL RISK RATIO 3.189 (<5); CREATININE FOR GFR 1.13 MG/DL (0.55-1.30); FERRITIN 170 NG/ML (8-252); GLUCOSE, FASTING 109 MG/DL (70-100); HDL CHOLESTEROL 58 MG/DL (>40); IRON (FE) 42 UG/DL (50-170); LDL CHOLESTEROL 109 MG/DL (<100); MAGNESIUM LEVEL 1.5 MG/DL (1.8-2.4); NON-HDL-C 127 MG/DL; NT-PRO BNP 92 PG/ML (<125); POTASSIUM SERUM 4.3 MEQ/L (3.5-5.1); PTH INTACT 51.3 PG/ML (18.5-88.0); SODIUM LEVEL 136 MEQ/L (136-145); TOTAL 25(OH) VITAMIN D 57.3 NG/ML (30.0-100.0); TOTAL IRON BINDING CAPACITY 301 UG/DL (250-450); TOTAL PROTEIN 6.3 GM/DL (6.4-8.2); TRIGLYCERIDES LEVEL 90 MG/DL (<150)
== END ==
LOC: M LAB 10:00
PROVIDERS: ATTEND Family Medicine
DX: R73.01 Impaired fasting glucose (principal); E55.9 Vitamin D deficiency, unspecified; E53.8 Deficiency of other specified B group vitamins; M47.816 Spondylosis without myelopathy or radiculopathy, lumbar region; I10 Essential (primary) hypertension

== ENCOUNTER → 2021-03-18 | Outpatient (CLI) | payer OTHER ==
--- NOTE | 2021-03-20 09:33 | REP ---
INDICATION: LUNG CANCER SCREENING COMPARISON: 03/17/2020, 02/26/2019 TECHNIQUE: Axial noncontrast images from the thoracic inlet to the upper abdomen using low-dose lung screening technique (LDCT). FINDINGS: The lung aviles are well aerated. Mild presumed chronic basilar fibroatelectatic changes (right greater than left) suggested. No acute consolidation, suspicious nodule or mass lesion. Previously noted endobronchial secretions in the right lower lobe have resolved. No effusion. No pneumothorax. Tracheobronchial tree is patent. Mediastinum is stable. IMPRESSION: Lung-RADS category 1. Management recommendations include annual low-dose CT surveillance. <Electronically signed by Bismark Sal > 03/20/21 [id number]
== END ==
LOC: M RAD 09:38
PROVIDERS: ATTEND Nurse Practitioner
DX: Z12.2 Encounter for screening for malignant neoplasm of respiratory organs (principal); Z87.891 Personal history of nicotine dependence

== ENCOUNTER → 2021-07-01 | Outpatient (CLI) | payer OTHER ==
[2021-07-01 11:30] LABS: BASO % 0.5 % (0.0-1.0); EOS # 0.2 10^3/uL (0.0-0.5); EOS % 2.6 % (0.0-3.0); HEMATOCRIT 41.5 % (36.0-47.0); HEMOGLOBIN 13.2 g/dl (12.0-15.5); LYMPH # 1.8 10^3/uL (1.5-5.0); LYMPH % 23.8 % (24.0-44.0); MEAN CORPUSCULAR HEMOGLOBIN 27.8 pg (27.0-33.0); MEAN CORPUSCULAR HGB CONC 31.8 g/dl (32.0-36.5); MEAN CORPUSCULAR VOLUME 87.4 fl (80.0-96.0); MONO # 0.5 10^3/uL (0.0-0.8); NEUTROPHILS # 4.9 10^3/uL (1.5-8.5); NEUTROPHILS % 65.8 % (36.0-66.0); PLATELET COUNT, AUTOMATED 247 10^3/uL (150-450); RED BLOOD COUNT 4.75 10^6/uL (4.00-5.40); WHITE BLOOD COUNT 7.4 10^3/uL (4.0-10.0)
[2021-07-01 12:39] LABS: ALBUMIN 3.7 GM/DL (3.2-5.2); BILIRUBIN,TOTAL 0.3 MG/DL (0.2-1.0); CALCIUM LEVEL 9.6 MG/DL (8.5-10.1); CHOLESTEROL RISK RATIO 2.578 (<5); CREATININE FOR GFR 1.19 MG/DL (0.55-1.30); FREE T4 1.18 NG/DL (0.76-1.46); GLOMERULAR FILTRATION RATE 49.8 (>51); POTASSIUM SERUM 4.2 MEQ/L (3.5-5.1); THYROID STIMULATING HORMONE 2.1 uIU/ML (0.358-3.740); TOTAL PROTEIN 6.7 GM/DL (6.4-8.2)
[2021-07-01 12:41] LABS: TOTAL 25(OH) VITAMIN D 58.6 NG/ML (30.0-100.0)
[2021-07-01 12:50] LABS: HEMOGLOBIN A1c 6.1 %
== END ==
LOC: M LAB 11:00
PROVIDERS: ATTEND Nurse Practitioner Family
DX: I10 Essential (primary) hypertension (principal); E55.9 Vitamin D deficiency, unspecified; R73.01 Impaired fasting glucose; E06.3 Autoimmune thyroiditis; E78.2 Mixed hyperlipidemia

== ENCOUNTER → 2021-10-26 | Outpatient (CLI) | payer OTHER | LOC: M WHC 06:59 | PROVIDERS: ATTEND Family Medicine | DX: Z12.31 Encounter for screening mammogram for malignant neoplasm of breast (principal); Z78.0 Asymptomatic menopausal state; Z80.0 Family history of malignant neoplasm of digestive organs; Z92.0 Personal history of contraception; Z85.9 Personal history of malignant neoplasm, unspecified ==

== ENCOUNTER 2021-12-11 11:49 | Emergency (ER) | payer OTHER ==
[~2021-12-11] VITALS: Ht 165.1 cm; Wt 113.9 kg
[2021-12-11 11:49] VITALS: BP 149/88
[2021-12-11] MEDS ORDERED: ROPI0.5T3 (11:58)
[2021-12-11] MEDS ORDERED: METO10TA2 (11:58)
[2021-12-11] MEDS ORDERED: TORS10TA3 (11:58)
[2021-12-11] MEDS ORDERED: PILL CUTTER 1 EACH XX ONE (12:16)
[2021-12-11] MEDS ORDERED: ACETAMINOPHEN 325 MG TAB PO ONE (12:45)
[2021-12-11] MEDS ORDERED: LIDOCAINE 5% (LIDODERM) PATCH TD ONE (12:45)
[2021-12-11] MEDS ORDERED: LIDO5DIS41 TOP (14:28)
[2021-12-11] MEDS ORDERED: **NOTE PATIENT COMMENT** MISC XX SCH (21:00)
== END 2021-12-11 14:45 | disposition home or self-care (01) ==
LOC: M ED 11:49
DX: M51.26 Other intervertebral disc displacement, lumbar region (principal); M51.36 Other intervertebral disc degeneration, lumbar region; M70.60 Trochanteric bursitis, unspecified hip; E11.9 Type 2 diabetes mellitus without complications; I10 Essential (primary) hypertension; E78.5 Hyperlipidemia, unspecified; Z79.899 Other long term (current) drug therapy; Z79.84 Long term (current) use of oral hypoglycemic drugs; Z88.1 Allergy status to other antibiotic agents; Z88.2 Allergy status to sulfonamides; Z87.891 Personal history of nicotine dependence

== ENCOUNTER 2021-12-20 10:02 | Emergency (ER) | payer OTHER ==
[~2021-12-20] VITALS: Ht 165.1 cm; Wt 112.9 kg
[~2021-12-20 10:02] MED LIST changes: +LIDO5DIS41 TOP; +METO10TA2; +TORS10TA3
[2021-12-20 11:58] LABS: BASO # 0.1 10^3/uL (0.0-0.2); BASO % 0.8 % (0.0-1.0); EOS # 4.4 10^3/uL (0.0-0.5); HEMATOCRIT 39.8 % (36.0-47.0); HEMOGLOBIN 12.5 g/dl (12.0-15.5); LYMPH # 1.6 10^3/uL (1.5-5.0); LYMPH % 10.2 % (24.0-44.0); MEAN CORPUSCULAR HEMOGLOBIN 26.6 pg (27.0-33.0); MEAN CORPUSCULAR HGB CONC 31.4 g/dl (32.0-36.5); MEAN CORPUSCULAR VOLUME 84.7 fl (80.0-96.0); MONO # 0.9 10^3/uL (0.0-0.8); MONO % 5.5 % (2.0-8.0); NEUTROPHILS # 8.8 10^3/uL (1.5-8.5); NEUTROPHILS % 55.3 % (36.0-66.0); PLATELET COUNT, AUTOMATED 362 10^3/uL (150-450); WHITE BLOOD COUNT 15.9 10^3/uL (4.0-10.0)
[2021-12-20] MEDS ORDERED: KETOROLAC 30 MG/ML 1ML VIAL IV ONE (12:20)
[2021-12-20 12:29] LABS: ALBUMIN 2.9 GM/DL (3.2-5.2); ALT/SGPT 18 U/L (12-78); BILIRUBIN,DIRECT < 0.1 MG/DL (0.0-0.2); BILIRUBIN,TOTAL 0.3 MG/DL (0.2-1.0); BLOOD UREA NITROGEN 17 MG/DL (7-18); CALCIUM LEVEL 10.2 MG/DL (8.5-10.1); CARBON DIOXIDE LEVEL 28 MEQ/L (21-32); CHLORIDE LEVEL 107 MEQ/L (98-107); CREATININE FOR GFR 1.06 MG/DL (0.55-1.30); GLOMERULAR FILTRATION RATE 56.9 (>51); GLUCOSE, FASTING 122 MG/DL (70-100); LIPASE 71 U/L (73-393); POTASSIUM SERUM 4.2 MEQ/L (3.5-5.1); SODIUM LEVEL 141 MEQ/L (136-145); TOTAL PROTEIN 7.2 GM/DL (6.4-8.2)
[2021-12-20 12:51] LABS: EOS % 27.8 % (0.0-3.0)
[2021-12-20 13:49] VITALS: BP 134/68
[2021-12-20] MEDS ORDERED: ISOVUE-370 76% 100ML VIAL As Ordered ONE (16:04)
[2021-12-20] MEDS ORDERED: CEFD300C41 PO (19:55)
[2021-12-20] MEDS ORDERED: CEFDINIR 300 MG CAP (OMNICEF) PO ONE (19:55)
== END 2021-12-20 22:44 | disposition home or self-care (01) ==
LOC: M ED 10:02
DX: R91.8 Other nonspecific abnormal finding of lung field (principal); N28.89 Other specified disorders of kidney and ureter; E11.9 Type 2 diabetes mellitus without complications; I10 Essential (primary) hypertension; E78.5 Hyperlipidemia, unspecified; K21.9 Gastro-esophageal reflux disease without esophagitis; Z88.1 Allergy status to other antibiotic agents; Z88.2 Allergy status to sulfonamides; Z79.899 Other long term (current) drug therapy; Z79.84 Long term (current) use of oral hypoglycemic drugs; Z87.891 Personal history of nicotine dependence
CPT/HCPCS: 71260; 74176; 74177; 80048; 80076; 81001; 83690; 85025; 87086; 96374; 99284; J1885; Q9967

== ENCOUNTER → 2021-12-30 | Outpatient (CLI) | payer OTHER ==
[~2021-12-30] MED LIST changes: +CEFD300C41 PO; +D32000CA PO; +METO10TA2 PO; +ONDA-195 PO; +PERCOCET PO; +PROT0.1O EXT; +ROPI0.5T3 PO; +TORS10TA3 PO; +VITA500T41 PO
[2021-12-30 11:37] LABS: HEMATOCRIT 41.4 % (36.0-47.0); MEAN CORPUSCULAR HEMOGLOBIN 26.1 pg (27.0-33.0); MEAN CORPUSCULAR HGB CONC 31.4 g/dl (32.0-36.5); PLATELET COUNT, AUTOMATED 434 10^3/uL (150-450); RED BLOOD COUNT 4.99 10^6/uL (4.00-5.40); WHITE BLOOD COUNT 22.9 10^3/uL (4.0-10.0)
[2021-12-30 11:38] LABS: APPEARANCE, URINE HAZY (CLEAR); BACTERIA, URINE AUTO NEGATIVE (NEGATIVE); BILIRUBIN, URINE AUTO NEGATIVE (NEGATIVE); BLOOD, URINE BLOOD 2+ (NEGATIVE); COLOR, URINE YELLOW (YELLOW); GLUCOSE, URINE (UA) AUTO NEGATIVE (NEGATIVE); KETONE, URINE AUTO NEGATIVE (NEGATIVE); LEUKOCYTE ESTERASE, URINE AUTO 2+ (NEGATIVE); MUCUS, URINE SMALL (NEGATIVE); NITRITE, URINE AUTO NEGATIVE (NEGATIVE); PROTEIN, URINE AUTO 2+ mg/dL (NEGATIVE); RBC, URINE AUTO 9 /HPF (0-3); SPECIFIC GRAVITY URINE AUTO 1.024 (1.002-1.035); SQUAMOUS EPITHELIAL CELL UR AU 5 /HPF (0-6); UROBILINOGEN, URINE AUTO 0.2 mg/dL (0.0-2.0); WBC, URINE AUTO 15 /HPF (0-3)
[2021-12-30 12:04] LABS: INR 1.12; PARTIAL THROMBOPLASTIN TIME 33.1 SECONDS (25.9-37.0); PROTHROMBIN TIME 14.9 SECONDS (12.7-14.5)
[2021-12-30 12:17] LABS: CREATININE FOR GFR 1.2 MG/DL (0.55-1.30); GLOMERULAR FILTRATION RATE 49.1 (>51); POTASSIUM SERUM 3.6 MEQ/L (3.5-5.1)
== END ==
LOC: M EKG 10:24
PROVIDERS: ATTEND Nurse Practitioner Women's Health
DX: N28.89 Other specified disorders of kidney and ureter (principal); Z01.818 Encounter for other preprocedural examination

== ENCOUNTER 2022-01-02 15:39 | Inpatient (IN) | payer OTHER ==
[~2022-01-02] VITALS: Ht 165.1 cm; Wt 109.5 kg
[~2022-01-02 15:39] MED LIST changes: -D32000CA PO; -METO10TA2 PO; -ONDA-195 PO; -PERCOCET PO; -PROT0.1O EXT; -ROPI0.5T3 PO; -TORS10TA3 PO; -VITA500T41 PO
[2022-01-02] MEDS ORDERED: NS 1,000 ML IV ONE (17:10)
[2022-01-02] MEDS ORDERED: ONDANSETRON 4MG 2ML VIAL IV ONE (17:10)
[2022-01-02 17:22] LABS: APPEARANCE, URINE HAZY (CLEAR); BACTERIA, URINE AUTO NEGATIVE (NEGATIVE); BILIRUBIN, URINE AUTO NEGATIVE (NEGATIVE); BLOOD, URINE BLOOD 2+ (NEGATIVE); COLOR, URINE YELLOW (YELLOW); GLUCOSE, URINE (UA) AUTO NEGATIVE (NEGATIVE); GRANULAR CAST, URINE AUTO 11 /LPF; KETONE, URINE AUTO NEGATIVE (NEGATIVE); LEUKOCYTE ESTERASE, URINE AUTO 2+ (NEGATIVE); MUCUS, URINE SMALL (NEGATIVE); NITRITE, URINE AUTO NEGATIVE (NEGATIVE); PROTEIN, URINE AUTO 2+ mg/dL (NEGATIVE); RBC, URINE AUTO 9 /HPF (0-3); SPECIFIC GRAVITY URINE AUTO 1.018 (1.002-1.035); SQUAMOUS EPITHELIAL CELL UR AU 10 /HPF (0-6); TRANSITIONAL EPITHELIAL AUTO 1 /HPF; UROBILINOGEN, URINE AUTO 0.2 mg/dL (0.0-2.0); WBC, URINE AUTO 31 /HPF (0-3)
[2022-01-02] MEDS: MORPHINE 4 MG/ML 1ML VIAL/SYRINGE IV PRN ×2 (17:58→18:46)
[2022-01-02 18:09] LABS: BASO # 0.1 10^3/uL (0.0-0.2); BASO % 0.7 % (0.0-1.0); EOS # 2.9 10^3/uL (0.0-0.5); EOS % 14.4 % (0.0-3.0); HEMATOCRIT 41.2 % (36.0-47.0); HEMOGLOBIN 13.2 g/dl (12.0-15.5); LYMPH # 1.3 10^3/uL (1.5-5.0); LYMPH % 6.5 % (24.0-44.0); MEAN CORPUSCULAR HEMOGLOBIN 26.6 pg (27.0-33.0); MEAN CORPUSCULAR VOLUME 82.9 fl (80.0-96.0); MONO % 4.9 % (2.0-8.0); NEUTROPHILS # 14.4 10^3/uL (1.5-8.5); NEUTROPHILS % 72.6 % (36.0-66.0); PLATELET COUNT, AUTOMATED 408 10^3/uL (150-450); RED BLOOD COUNT 4.97 10^6/uL (4.00-5.40); WHITE BLOOD COUNT 19.8 10^3/uL (4.0-10.0)
[2022-01-02 18:31] LABS: CK-MB VALUE MASS < 1.0 NG/ML (<3.6); CPK CREATINE PHOSPHOKINASE 24 U/L (26-192); MB/CK RELATIVE INDEX 4.17 (< OR =4)
[2022-01-02 18:35] LABS: ALBUMIN 2.5 GM/DL (3.2-5.2); ALT/SGPT 33 U/L (12-78); BILIRUBIN,DIRECT < 0.1 MG/DL (0.0-0.2); BILIRUBIN,TOTAL 0.3 MG/DL (0.2-1.0); LIPASE 47 U/L (73-393); TOTAL PROTEIN 6.6 GM/DL (6.4-8.2)
[2022-01-02] MEDS ORDERED: ISOVUE-370 76% 100ML VIAL As Ordered ONE (19:35)
[2022-01-02] MEDS: BUDESONIDE 180MCG INHALER (PULMICORT FLEXHALER) INH SCH (20:00)
[2022-01-02 20:16] LABS: CK-MB VALUE MASS < 1.0 NG/ML (<3.6); CPK CREATINE PHOSPHOKINASE 19 U/L (26-192); MB/CK RELATIVE INDEX 5.26 (< OR =4)
[2022-01-02] MEDS ORDERED: METOCLOPRAMIDE 10MG TAB PO SCH (21:00)
[2022-01-02] MEDS: INSULIN LISPRO (NovoLOG) PER UNIT SC SCH (21:00)
[2022-01-02] MEDS ORDERED: methylPREDNISolone 125MG 2ML VIAL IV ONE (21:50)
[2022-01-02] MEDS ORDERED: MORPHINE 2 MG/ML 1ML VIAL IV PRN (22:10)
[2022-01-02] MEDS ORDERED: GLUCAGON INJ 1MG VIAL SC PRN (22:10)
[2022-01-02] MEDS ORDERED: IPRATROPIUM 0.02% SOLN 0.5MG 2.5ML NEB NEB PRN (22:10)
[2022-01-02] MEDS ORDERED: GLUCOSE 4GM CHEW TABLET PO PRN (22:10)
[2022-01-02] MEDS ORDERED: DEXTROSE 50% 50 ML SYRINGE IV PRN (22:10)
[2022-01-02] MEDS ORDERED: LEVALBUTEROL 1.25 MG/0.5 ML CONCENTRATE NEB NEB PRN (22:10)
[2022-01-02] MEDS ORDERED: TORS10TA3 PO (22:46)
[2022-01-02] MEDS ORDERED: PROT0.1O EXT (22:46)
[2022-01-02] MEDS ORDERED: D32000CA PO (22:46)
[2022-01-02] MEDS ORDERED: VITA500T41 PO (22:46)
[2022-01-02] MEDS ORDERED: AMIT10TA7 PO (22:46)
[2022-01-02] MEDS ORDERED: ONDA-195 PO (22:46)
[2022-01-02] MEDS ORDERED: ROPI0.5T3 PO (22:46)
[2022-01-02] MEDS ORDERED: METO10TA2 PO (22:46)
[2022-01-02] MEDS ORDERED: METF750T36 PO (22:46)
[2022-01-02] MEDS ORDERED: PERCOCET PO (22:46)
[2022-01-02] MEDS ORDERED: HOME MED LIST COMPLETE! XX SCH (22:50)
[2022-01-02 22:57] LABS: NT-PRO BNP 460 PG/ML (<125)
[2022-01-02 23:01] LABS: RSV AMPLIFICATION NEGATIVE (NEGATIVE)
[2022-01-02] MEDS ORDERED: NS 1,000 ML IV SCH (23:10)
[2022-01-02 23:42] LABS: VENOUS BASE EXCESS 6.6 (-2.0-2.0); VENOUS HCO3 31.2 MEQ/L (23.0-27.0); VENOUS O2 SATURATION 98.3 % (60.0-80.0); VENOUS PARTIAL PRESSURE CO2 44.4 mmHg (38.0-50.0); VENOUS PH 7.464 UNITS (7.330-7.430); VENOUS STANDARD HCO3 30.4 MEQ/L; VENOUS TOTAL CO2 32.5 MEQ/L (24.0-28.0)
[2022-01-03] VITALS (7 sets, daily range): BP systolic 133–173; BP diastolic 67–94; O2SAT 93–97
[2022-01-03] MEDS ORDERED: **hydrALAZINE** 10 MG TAB PO PRN (00:35)
[2022-01-03] MEDS: PANTOPRAZOLE 40MG TAB (PROTONIX) PO SCH ×3 (01:32→22:01)
[2022-01-03] MEDS: BENZONATATE 100MG CAPSULE PO SCH ×4 (01:32→22:01)
[2022-01-03] MEDS: PERCOCET 5MG/325MG TAB PO PRN ×4 (01:34→22:04)
[2022-01-03] MEDS: rOPINIRole 0.25 MG TAB(REQUIP) PO SCH ×2 (01:37→22:01)
[2022-01-03] MEDS: AMITRIPTYLINE 10MG TABLET PO SCH ×2 (01:38→22:00)
[2022-01-03 06:30] LABS: HEMATOCRIT 38.6 % (36.0-47.0); HEMOGLOBIN 12.2 g/dl (12.0-15.5); MEAN CORPUSCULAR HEMOGLOBIN 26.5 pg (27.0-33.0); MEAN CORPUSCULAR HGB CONC 31.6 g/dl (32.0-36.5); MEAN CORPUSCULAR VOLUME 83.9 fl (80.0-96.0); PLATELET COUNT, AUTOMATED 383 10^3/uL (150-450); WHITE BLOOD COUNT 13.4 10^3/uL (4.0-10.0)
[2022-01-03 07:07] LABS: ALBUMIN 2.3 GM/DL (3.2-5.2); ALT/SGPT 30 U/L (12-78); BILIRUBIN,TOTAL 0.2 MG/DL (0.2-1.0); BLOOD UREA NITROGEN 17 MG/DL (7-18); CALCIUM LEVEL 11.8 MG/DL (8.5-10.1); CARBON DIOXIDE LEVEL 28 MEQ/L (21-32); CHLORIDE LEVEL 100 MEQ/L (98-107); CREATININE FOR GFR 0.86 MG/DL (0.55-1.30); GLOMERULAR FILTRATION RATE > 60.0 (>51); GLUCOSE, FASTING 165 MG/DL (70-100); MAGNESIUM LEVEL 1.8 MG/DL (1.8-2.4); POTASSIUM SERUM 4.1 MEQ/L (3.5-5.1); SODIUM LEVEL 138 MEQ/L (136-145); TOTAL PROTEIN 6.2 GM/DL (6.4-8.2)
[2022-01-03 07:24] LABS: HEMOGLOBIN A1c 6.8 %
[2022-01-03] MEDS: LIDOCAINE 5% (LIDODERM) PATCH TD SCH (08:49)
[2022-01-03] MEDS: ONDANSETRON 4MG 2ML VIAL IV PRN ×2 (08:51→19:15)
[2022-01-03] MEDS: INSULIN LISPRO (NovoLOG) PER UNIT SC SCH ×4 (08:51→20:40)
[2022-01-03] MEDS: CYANOCOBALAMIN 500 MCG TAB PO SCH (08:52)
[2022-01-03] MEDS: POTASSIUM CHLORIDE 10MEQ SR TABLET PO SCH (08:52)
[2022-01-03] MEDS: SIMVASTATIN 40 MG TAB PO SCH (08:52)
[2022-01-03] MEDS ORDERED: ENOXAPARIN 40MG/0.4ML SYRINGE (J1650 PER 10MG) SC SCH (09:00)
[2022-01-03] MEDS ORDERED: TORSEMIDE 10 MG TABLET PO SCH (09:00)
[2022-01-03] MEDS ORDERED: NS 1,000 ML IV SCH (10:40)
[2022-01-03 11:21] LABS: TOTAL 25(OH) VITAMIN D 83.7 NG/ML (30.0-100.0)
[2022-01-03 11:22] LABS: PTH INTACT < 6.3 PG/ML (18.5-88.0)
[2022-01-03] MEDS: BUDESONIDE 180MCG INHALER (PULMICORT FLEXHALER) INH SCH ×2 (12:44→20:00)
[2022-01-03] MEDS: LACTOBACILLUS ACIDOPHILUS CAP (BACID) PO SCH ×2 (12:48→17:45)
[2022-01-03 12:56] LABS: INR 1.07; PROTHROMBIN TIME 14.4 SECONDS (12.7-14.5)
[2022-01-03] MEDS: LevoFLOXacin 750 MG TABLET PO SCH (14:47)
[2022-01-03] MEDS: LEVALBUTEROL 1.25 MG/0.5 ML CONCENTRATE NEB INH SCH ×3 (15:00→23:10)
[2022-01-03] MEDS ORDERED: PERCOCET 5MG/325MG TAB PO ONE (16:05)
[2022-01-03] MEDS: NS 1,000 ML IV SCH ×2 (17:47→20:58)
[2022-01-03] MEDS: CALCITONIN SALMON (MIACALCIN) 400INTERNATIONAL UNITS/2ML VIAL SQ SCH (18:10)
[2022-01-03] MEDS: MORPHINE 4 MG/ML 1ML VIAL/SYRINGE IV PRN (20:49)
[2022-01-03] MEDS: PROCHLORPERAZINE 10MG 2ML VIAL IV PRN (20:49)
[2022-01-03] MEDS ORDERED: MAGNESIUM OXIDE 400MG TAB (MAG-OX) PO ONE (21:45)
[2022-01-03] MEDS ORDERED: cloNIDine 0.1MG TABLET PO ONE (21:45)
[2022-01-03] MEDS: **NOTE PATIENT COMMENT** MISC XX SCH (22:02)
[2022-01-03] MEDS ORDERED: LORazepam 0.5 MG TAB PO ONE (23:30)
[2022-01-03] MEDS ORDERED: METOPROLOL TART 12.5 MG PER 1/2 TAB PO ONE (23:40)
[2022-01-04] VITALS (9 sets, daily range): BP systolic 140–168; BP diastolic 60–85; O2SAT 94
[2022-01-04] MEDS: INSULIN LISPRO (NovoLOG) PER UNIT SC SCH ×4 (03:00→22:03)
[2022-01-04] MEDS: LEVALBUTEROL 1.25 MG/0.5 ML CONCENTRATE NEB INH SCH ×6 (04:00→23:23)
[2022-01-04] MEDS ORDERED: D5W/0.9% SODIUM CHLORIDE 1,000 ML IV SCH (04:20)
[2022-01-04] MEDS: PERCOCET 5MG/325MG TAB PO PRN ×2 (04:27→22:33)
[2022-01-04 06:04] LABS: HEMATOCRIT 35.9 % (36.0-47.0); HEMOGLOBIN 11.5 g/dl (12.0-15.5); MEAN CORPUSCULAR HEMOGLOBIN 26.9 pg (27.0-33.0); MEAN CORPUSCULAR VOLUME 84.1 fl (80.0-96.0); PLATELET COUNT, AUTOMATED 347 10^3/uL (150-450); RED BLOOD COUNT 4.27 10^6/uL (4.00-5.40); WHITE BLOOD COUNT 15.7 10^3/uL (4.0-10.0)
[2022-01-04 06:38] LABS: BLOOD UREA NITROGEN 15 MG/DL (7-18); CALCIUM LEVEL 10.4 MG/DL (8.5-10.1); CARBON DIOXIDE LEVEL 30 MEQ/L (21-32); CHLORIDE LEVEL 100 MEQ/L (98-107); CREATININE FOR GFR 0.86 MG/DL (0.55-1.30); GLOMERULAR FILTRATION RATE > 60.0 (>51); GLUCOSE, FASTING 155 MG/DL (70-100); SODIUM LEVEL 137 MEQ/L (136-145)
[2022-01-04] MEDS: CALCITONIN SALMON (MIACALCIN) 400INTERNATIONAL UNITS/2ML VIAL SQ SCH ×2 (06:45→17:32)
[2022-01-04] MEDS: LevoFLOXacin 750 MG TABLET PO SCH (06:45)
[2022-01-04] MEDS ORDERED: FUROSEMIDE 20MG/2ML VIAL (J1940) IV ONE (07:30)
[2022-01-04] MEDS ORDERED: PERCOCET 5MG/325MG TAB PO ONE (08:00)
[2022-01-04] MEDS: LACTOBACILLUS ACIDOPHILUS CAP (BACID) PO SCH ×2 (08:00→17:32)
[2022-01-04] MEDS: TIOTROPIUM INHALER/CAPSULE (SPIRIVA) INH SCH (08:00)
[2022-01-04] MEDS: BUDESONIDE 180MCG INHALER (PULMICORT FLEXHALER) INH SCH ×2 (08:00→19:46)
[2022-01-04] MEDS ORDERED: MAG SULF 1GM/100ML (MAG RUN) 1 GM in IV 1 EA IV ONE (08:00)
[2022-01-04] MEDS: BENZONATATE 100MG CAPSULE PO SCH ×3 (08:34→22:33)
[2022-01-04] MEDS: CYANOCOBALAMIN 500 MCG TAB PO SCH (08:34)
[2022-01-04] MEDS: PANTOPRAZOLE 40MG TAB (PROTONIX) PO SCH ×2 (08:34→22:32)
[2022-01-04] MEDS: SIMVASTATIN 40 MG TAB PO SCH (08:34)
[2022-01-04] MEDS: POTASSIUM CHLORIDE 10MEQ SR TABLET PO SCH (08:35)
[2022-01-04] MEDS: LIDOCAINE 5% (LIDODERM) PATCH TD SCH (08:50)
[2022-01-04 10:09] LABS: LDH LACTATE DEHYDROGENASE 123 U/L (84-246); NT-PRO BNP 509 PG/ML (<125); TOTAL PROTEIN 5.4 GM/DL (6.4-8.2)
[2022-01-04] MEDS: ONDANSETRON 4MG 2ML VIAL IV PRN ×2 (10:37→22:33)
[2022-01-04] MEDS: PROCHLORPERAZINE 10MG 2ML VIAL IV PRN (13:39)
[2022-01-04] MEDS ORDERED: LIDOCAINE 1% MDV 20ML VIAL As Ordered ONE (15:01)
[2022-01-04 17:36] LABS: BLOOD UREA NITROGEN 13 MG/DL (7-18); CALCIUM LEVEL 10.5 MG/DL (8.5-10.1); CARBON DIOXIDE LEVEL 31 MEQ/L (21-32); CHLORIDE LEVEL 101 MEQ/L (98-107); GLOMERULAR FILTRATION RATE > 60.0 (>51); GLUCOSE, FASTING 128 MG/DL (70-100); MAGNESIUM LEVEL 2.2 MG/DL (1.8-2.4); POTASSIUM SERUM 4.2 MEQ/L (3.5-5.1); SODIUM LEVEL 136 MEQ/L (136-145)
[2022-01-04] MEDS: LEVALBUTEROL 1.25 MG/0.5 ML CONCENTRATE NEB INH PRN (21:20)
[2022-01-04] MEDS: **NOTE PATIENT COMMENT** MISC XX SCH (22:04)
[2022-01-04] MEDS: AMITRIPTYLINE 10MG TABLET PO SCH (22:32)
[2022-01-04] MEDS: rOPINIRole 0.25 MG TAB(REQUIP) PO SCH (22:33)
[2022-01-04 22:49] LABS: VENOUS HCO3 26.1 MEQ/L (23.0-27.0); VENOUS O2 SATURATION 94.4 % (60.0-80.0); VENOUS PARTIAL PRESSURE CO2 38.7 mmHg (38.0-50.0); VENOUS PARTIAL PRESSURE O2 65.3 mmHg (30.0-50.0); VENOUS PH 7.446 UNITS (7.330-7.430); VENOUS STANDARD HCO3 26.2 MEQ/L; VENOUS TOTAL CO2 27.2 MEQ/L (24.0-28.0)
[2022-01-04] MEDS ORDERED: NS 1,000 ML IV SCH (23:30)
[2022-01-04] MEDS ORDERED: NS 250 ML IV ONE (23:30)
[2022-01-05] VITALS (10 sets, daily range): BP systolic 127–152; BP diastolic 59–87; O2SAT 88–97
[2022-01-05] MEDS: DOCUSATE SODIUM 100MG CAPSULE PO SCH ×3 (00:18→20:36)
[2022-01-05] MEDS: MORPHINE 4 MG/ML 1ML VIAL/SYRINGE IV PRN (00:18)
[2022-01-05 03:17] LABS: BASO % 0.2 % (0.0-1.0); EOS # 0.2 10^3/uL (0.0-0.5); EOS % 1.2 % (0.0-3.0); HEMATOCRIT 36.7 % (36.0-47.0); HEMOGLOBIN 11.6 g/dl (12.0-15.5); LYMPH % 6.2 % (24.0-44.0); MEAN CORPUSCULAR HEMOGLOBIN 26.5 pg (27.0-33.0); MEAN CORPUSCULAR HGB CONC 31.6 g/dl (32.0-36.5); MEAN CORPUSCULAR VOLUME 83.8 fl (80.0-96.0); MONO # 0.9 10^3/uL (0.0-0.8); MONO % 5.3 % (2.0-8.0); NEUTROPHILS # 13.9 10^3/uL (1.5-8.5); NEUTROPHILS % 86.4 % (36.0-66.0); PLATELET COUNT, AUTOMATED 306 10^3/uL (150-450); RED BLOOD COUNT 4.38 10^6/uL (4.00-5.40); WHITE BLOOD COUNT 16.1 10^3/uL (4.0-10.0)
[2022-01-05] MEDS: LEVALBUTEROL 1.25 MG/0.5 ML CONCENTRATE NEB INH SCH ×6 (03:45→23:41)
[2022-01-05 04:01] LABS: BLOOD UREA NITROGEN 13 MG/DL (7-18); CALCIUM LEVEL 10.6 MG/DL (8.5-10.1); CARBON DIOXIDE LEVEL 32 MEQ/L (21-32); CHLORIDE LEVEL 100 MEQ/L (98-107); CREATININE FOR GFR 0.72 MG/DL (0.55-1.30); GLOMERULAR FILTRATION RATE > 60.0 (>51); GLUCOSE, FASTING 136 MG/DL (70-100); POTASSIUM SERUM 3.8 MEQ/L (3.5-5.1); SODIUM LEVEL 136 MEQ/L (136-145)
[2022-01-05] MEDS: CALCITONIN SALMON (MIACALCIN) 400INTERNATIONAL UNITS/2ML VIAL SQ SCH ×2 (06:49→19:15)
[2022-01-05] MEDS: ONDANSETRON 4MG 2ML VIAL IV PRN ×2 (06:49→20:59)
[2022-01-05] MEDS: LevoFLOXacin 750 MG TABLET PO SCH (06:49)
[2022-01-05] MEDS: PERCOCET 5MG/325MG TAB PO PRN ×4 (06:50→20:56)
[2022-01-05] MEDS: BUDESONIDE 180MCG INHALER (PULMICORT FLEXHALER) INH SCH ×2 (07:18→20:51)
[2022-01-05] MEDS: TIOTROPIUM INHALER/CAPSULE (SPIRIVA) INH SCH (07:18)
[2022-01-05] MEDS: INSULIN LISPRO (NovoLOG) PER UNIT SC SCH ×4 (07:30→21:00)
[2022-01-05] MEDS: LACTOBACILLUS ACIDOPHILUS CAP (BACID) PO SCH ×2 (08:00→19:15)
[2022-01-05] MEDS ORDERED: METOPROLOL 5 MG/5 ML VIAL IV STA (08:19)
[2022-01-05] MEDS ORDERED: FUROSEMIDE 40MG/4ML VIAL (J1940) IV ONE (08:20)
[2022-01-05] MEDS ORDERED: METOPROLOL TART 12.5 MG PER 1/2 TAB PO ONE (08:25)
[2022-01-05] MEDS ORDERED: DOXYCYCLINE HYCLATE 100 MG in D5W MINI-BAG PLUS 100 ML IV SCH (08:25)
[2022-01-05] MEDS ORDERED: MIDODRINE 5 MG TAB PO ONE (08:25)
[2022-01-05] MEDS ORDERED: ISOVUE-370 76% 100ML VIAL As Ordered ONE (08:48)
[2022-01-05] MEDS: MIRALAX *UNIT DOSE* 17GM PACKET PO SCH (09:00)
[2022-01-05] MEDS ORDERED: DOXYCYCLINE HYCLATE 100MG TABLET PO SCH (09:00)
[2022-01-05 09:03] LABS: ABG BASE EXCESS 4.8 (-2.0-2.0); ABG HCO3 28.6 MEQ/L (22.0-26.0); ABG O2 SATURATION 98.5 % (95.0-99.0); ABG PARTIAL PRESSURE CO2 39.4 mmHg (35.0-45.0); ABG PARTIAL PRESSURE O2 127.5 mmHg (75.0-100.0); ABG STANDARD HCO3 28.8 MEQ/L (22.0-26.0); ABG TOTAL CO2 29.8 MEQ/L (22.0-29.0); ABG pH (ARTERIAL) 7.479 UNITS (7.350-7.450)
[2022-01-05] MEDS: guaiFENesin ER 600 MG TAB PO PRN (11:07)
[2022-01-05] MEDS: LIDOCAINE 5% (LIDODERM) PATCH TD SCH (11:07)
[2022-01-05] MEDS: PANTOPRAZOLE 40MG TAB (PROTONIX) PO SCH ×2 (11:07→20:36)
[2022-01-05] MEDS: SIMVASTATIN 40 MG TAB PO SCH (11:07)
[2022-01-05] MEDS: CYANOCOBALAMIN 500 MCG TAB PO SCH (11:08)
[2022-01-05] MEDS: cefTRIAXone SOD 2 GM in D5W MINI-BAG PLUS 50 ML IV SCH (11:08)
[2022-01-05] MEDS: BENZONATATE 100MG CAPSULE PO SCH ×3 (11:08→20:36)
[2022-01-05] MEDS: POTASSIUM CHLORIDE 10MEQ SR TABLET PO SCH (11:08)
[2022-01-05] MEDS: DOXYCYCLINE HYCLATE 100 MG in D5W MINI-BAG PLUS 100 ML IV SCH ×2 (12:32→20:36)
[2022-01-05] MEDS: AMITRIPTYLINE 10MG TABLET PO SCH (20:36)
[2022-01-05] MEDS: rOPINIRole 0.25 MG TAB(REQUIP) PO SCH (20:36)
[2022-01-05] MEDS: **NOTE PATIENT COMMENT** MISC XX SCH (20:40)
[2022-01-06] VITALS (20 sets, daily range): BP systolic 127–177; BP diastolic 68–86; O2SAT 87–96
[2022-01-06] MEDS ORDERED: METOPROLOL 5 MG/5 ML VIAL IV STA (02:07)
[2022-01-06] MEDS ORDERED: METOPROLOL TART 12.5 MG PER 1/2 TAB PO SCH (04:35)
[2022-01-06] MEDS: CALCITONIN SALMON (MIACALCIN) 400INTERNATIONAL UNITS/2ML VIAL SQ SCH ×2 (04:48→22:22)
[2022-01-06] MEDS: PERCOCET 5MG/325MG TAB PO PRN ×2 (04:48→16:04)
[2022-01-06] MEDS: ONDANSETRON 4MG 2ML VIAL IV PRN (04:54)
[2022-01-06] MEDS: methylPREDNISolone 125MG 2ML VIAL IV SCH ×3 (06:37→18:09)
[2022-01-06 07:30] LABS: BASO # 0.1 10^3/uL (0.0-0.2); BASO % 0.3 % (0.0-1.0); EOS # 1.1 10^3/uL (0.0-0.5); EOS % 6.1 % (0.0-3.0); HEMATOCRIT 37.2 % (36.0-47.0); HEMOGLOBIN 11.8 g/dl (12.0-15.5); LYMPH # 0.8 10^3/uL (1.5-5.0); LYMPH % 4.3 % (24.0-44.0); MEAN CORPUSCULAR HEMOGLOBIN 26.5 pg (27.0-33.0); MEAN CORPUSCULAR HGB CONC 31.7 g/dl (32.0-36.5); MEAN CORPUSCULAR VOLUME 83.6 fl (80.0-96.0); MONO % 5.5 % (2.0-8.0); NEUTROPHILS # 15.2 10^3/uL (1.5-8.5); PLATELET COUNT, AUTOMATED 271 10^3/uL (150-450); RED BLOOD COUNT 4.45 10^6/uL (4.00-5.40); WHITE BLOOD COUNT 18.3 10^3/uL (4.0-10.0)
[2022-01-06 07:50] LABS: ERYTHROCYTE SEDIMENTATION RATE 46 mm/hr (0-30)
[2022-01-06] MEDS: LEVALBUTEROL 1.25 MG/0.5 ML CONCENTRATE NEB INH SCH ×5 (07:54→23:34)
[2022-01-06] MEDS: TIOTROPIUM INHALER/CAPSULE (SPIRIVA) INH SCH (07:54)
[2022-01-06 07:59] LABS: CK-MB VALUE MASS < 1.0 NG/ML (<3.6); CPK CREATINE PHOSPHOKINASE 14 U/L (26-192); MB/CK RELATIVE INDEX 7.14 (< OR =4)
[2022-01-06 08:01] LABS: BLOOD UREA NITROGEN 13 MG/DL (7-18); CALCIUM LEVEL 11.9 MG/DL (8.5-10.1); CARBON DIOXIDE LEVEL 28 MEQ/L (21-32); CHLORIDE LEVEL 101 MEQ/L (98-107); CREATININE FOR GFR 0.78 MG/DL (0.55-1.30); GLOMERULAR FILTRATION RATE > 60.0 (>51); GLUCOSE, FASTING 152 MG/DL (70-100); NT-PRO BNP 581 PG/ML (<125); POTASSIUM SERUM 3.8 MEQ/L (3.5-5.1); SODIUM LEVEL 134 MEQ/L (136-145)
[2022-01-06] MEDS: MIRALAX *UNIT DOSE* 17GM PACKET PO SCH (08:06)
[2022-01-06] MEDS: LIDOCAINE 5% (LIDODERM) PATCH TD SCH (08:06)
[2022-01-06] MEDS: SIMVASTATIN 40 MG TAB PO SCH (08:15)
[2022-01-06] MEDS: POTASSIUM CHLORIDE 10MEQ SR TABLET PO SCH (08:15)
[2022-01-06] MEDS: DOCUSATE SODIUM 100MG CAPSULE PO SCH ×2 (08:15→22:21)
[2022-01-06] MEDS: BENZONATATE 100MG CAPSULE PO SCH ×3 (08:15→22:21)
[2022-01-06] MEDS: PANTOPRAZOLE 40MG TAB (PROTONIX) PO SCH ×2 (08:15→22:21)
[2022-01-06] MEDS: cefTRIAXone SOD 2 GM in D5W MINI-BAG PLUS 50 ML IV SCH (08:15)
[2022-01-06] MEDS: CYANOCOBALAMIN 500 MCG TAB PO SCH (08:15)
[2022-01-06] MEDS: LACTOBACILLUS ACIDOPHILUS CAP (BACID) PO SCH ×2 (08:15→18:09)
[2022-01-06] MEDS: INSULIN LISPRO (NovoLOG) PER UNIT SC SCH ×4 (09:36→21:00)
[2022-01-06] MEDS: DOXYCYCLINE HYCLATE 100 MG in D5W MINI-BAG PLUS 100 ML IV SCH ×2 (09:36→22:21)
[2022-01-06] MEDS: BUDESONIDE 180MCG INHALER (PULMICORT FLEXHALER) INH SCH ×2 (11:22→19:55)
[2022-01-06] MEDS ORDERED: GI COCKTAIL 50ML BTL(HYOSCYAMINE/MAALOX/LIDOCAINE VISCOUS)(1:3:1) PO PRN (16:15)
[2022-01-06] MEDS ORDERED: GI COCKTAIL 50ML BTL(HYOSCYAMINE/MAALOX/LIDOCAINE VISCOUS)(1:3:1) PO ONE (16:15)
[2022-01-06] MEDS: **NOTE PATIENT COMMENT** MISC XX SCH (21:00)
[2022-01-06] MEDS: rOPINIRole 0.25 MG TAB(REQUIP) PO SCH (22:20)
[2022-01-06] MEDS: AMITRIPTYLINE 10MG TABLET PO SCH (22:21)
[2022-01-07] VITALS (26 sets, daily range): BP systolic 139–202; BP diastolic 70–98; O2SAT 86–96
[2022-01-07] MEDS: methylPREDNISolone 125MG 2ML VIAL IV SCH ×2 (00:18→06:57)
[2022-01-07] MEDS: PERCOCET 5MG/325MG TAB PO PRN ×2 (05:39→15:16)
[2022-01-07] MEDS: CALCITONIN SALMON (MIACALCIN) 400INTERNATIONAL UNITS/2ML VIAL SQ SCH ×2 (06:57→18:45)
[2022-01-07] MEDS ORDERED: ZOLEDRONIC ACID 3 MG in D5W 100 ML IV ONE (07:15)
[2022-01-07] MEDS: TIOTROPIUM INHALER/CAPSULE (SPIRIVA) INH SCH (07:40)
[2022-01-07] MEDS: BUDESONIDE 180MCG INHALER (PULMICORT FLEXHALER) INH SCH ×2 (07:42→20:40)
[2022-01-07] MEDS: LEVALBUTEROL 1.25 MG/0.5 ML CONCENTRATE NEB INH SCH ×4 (07:46→20:40)
[2022-01-07 07:54] LABS: BASO % 0.2 % (0.0-1.0); HEMATOCRIT 37.8 % (36.0-47.0); HEMOGLOBIN 12.2 g/dl (12.0-15.5); LYMPH # 0.7 10^3/uL (1.5-5.0); LYMPH % 3.6 % (24.0-44.0); MEAN CORPUSCULAR HEMOGLOBIN 26.9 pg (27.0-33.0); MEAN CORPUSCULAR HGB CONC 32.3 g/dl (32.0-36.5); MEAN CORPUSCULAR VOLUME 83.3 fl (80.0-96.0); MONO # 0.7 10^3/uL (0.0-0.8); MONO % 3.7 % (2.0-8.0); NEUTROPHILS # 16.9 10^3/uL (1.5-8.5); NEUTROPHILS % 91.5 % (36.0-66.0); PLATELET COUNT, AUTOMATED 332 10^3/uL (150-450); RED BLOOD COUNT 4.54 10^6/uL (4.00-5.40); WHITE BLOOD COUNT 18.4 10^3/uL (4.0-10.0)
[2022-01-07 08:15] LABS: ERYTHROCYTE SEDIMENTATION RATE 39 mm/hr (0-30)
[2022-01-07 08:26] LABS: CK-MB VALUE MASS < 1.0 NG/ML (<3.6); CPK CREATINE PHOSPHOKINASE 12 U/L (26-192); MB/CK RELATIVE INDEX 8.33 (< OR =4)
[2022-01-07 08:27] LABS: ALBUMIN 2.1 GM/DL (3.2-5.2); ALT/SGPT 75 U/L (12-78); BILIRUBIN,TOTAL 0.3 MG/DL (0.2-1.0); BLOOD UREA NITROGEN 19 MG/DL (7-18); C REACTIVE PROTEIN QUANTITATIV 8.65 MG/DL (0.00-0.30); CALCIUM LEVEL 12.5 MG/DL (8.5-10.1); CARBON DIOXIDE LEVEL 27 MEQ/L (21-32); CHLORIDE LEVEL 99 MEQ/L (98-107); GLOMERULAR FILTRATION RATE > 60.0 (>51); GLUCOSE, FASTING 168 MG/DL (70-100); NT-PRO BNP 551 PG/ML (<125); POTASSIUM SERUM 3.8 MEQ/L (3.5-5.1); SODIUM LEVEL 135 MEQ/L (136-145); TOTAL PROTEIN 5.6 GM/DL (6.4-8.2)
[2022-01-07] MEDS: LIDOCAINE 5% (LIDODERM) PATCH TD SCH (09:00)
[2022-01-07] MEDS: MIRALAX *UNIT DOSE* 17GM PACKET PO SCH ×2 (09:00→09:27)
[2022-01-07] MEDS: cefTRIAXone SOD 2 GM in D5W MINI-BAG PLUS 50 ML IV SCH (09:27)
[2022-01-07] MEDS: INSULIN LISPRO (NovoLOG) PER UNIT SC SCH ×4 (09:29→21:00)
[2022-01-07] MEDS: POTASSIUM CHLORIDE 10MEQ SR TABLET PO SCH (09:31)
[2022-01-07] MEDS: SIMVASTATIN 40 MG TAB PO SCH (09:31)
[2022-01-07] MEDS: CYANOCOBALAMIN 500 MCG TAB PO SCH (09:31)
[2022-01-07] MEDS: BENZONATATE 100MG CAPSULE PO SCH ×3 (09:31→21:23)
[2022-01-07] MEDS: PANTOPRAZOLE 40MG TAB (PROTONIX) PO SCH ×2 (09:31→21:23)
[2022-01-07] MEDS: DOCUSATE SODIUM 100MG CAPSULE PO SCH ×2 (09:35→21:23)
[2022-01-07] MEDS: LACTOBACILLUS ACIDOPHILUS CAP (BACID) PO SCH ×2 (10:48→18:43)
[2022-01-07] MEDS: DOXYCYCLINE HYCLATE 100 MG in D5W MINI-BAG PLUS 100 ML IV SCH ×2 (10:48→21:24)
[2022-01-07] MEDS ORDERED: ZOLEDRONIC ACID 4 MG in IV 1 EA IV ONE (11:00)
[2022-01-07] MEDS: ONDANSETRON 4MG 2ML VIAL IV PRN (20:23)
[2022-01-07] MEDS: **NOTE PATIENT COMMENT** MISC XX SCH (21:00)
[2022-01-07] MEDS: rOPINIRole 0.25 MG TAB(REQUIP) PO SCH (21:23)
[2022-01-07] MEDS: AMITRIPTYLINE 10MG TABLET PO SCH (21:24)
[2022-01-08] VITALS (19 sets, daily range): BP systolic 135–152; BP diastolic 66–82; O2SAT 87–97
[2022-01-08] MEDS: PERCOCET 5MG/325MG TAB PO PRN ×3 (00:53→14:22)
[2022-01-08] MEDS: LEVALBUTEROL 1.25 MG/0.5 ML CONCENTRATE NEB INH SCH ×6 (03:00→20:40)
[2022-01-08 05:56] LABS: BASO % 0.1 % (0.0-1.0); EOS # 0.1 10^3/uL (0.0-0.5); EOS % 0.3 % (0.0-3.0); HEMATOCRIT 39.3 % (36.0-47.0); HEMOGLOBIN 12.5 g/dl (12.0-15.5); LYMPH # 0.7 10^3/uL (1.5-5.0); LYMPH % 3.5 % (24.0-44.0); MEAN CORPUSCULAR HEMOGLOBIN 26.5 pg (27.0-33.0); MEAN CORPUSCULAR HGB CONC 31.8 g/dl (32.0-36.5); MEAN CORPUSCULAR VOLUME 83.4 fl (80.0-96.0); MONO # 0.8 10^3/uL (0.0-0.8); MONO % 3.6 % (2.0-8.0); NEUTROPHILS # 18.8 10^3/uL (1.5-8.5); NEUTROPHILS % 91.3 % (36.0-66.0); PLATELET COUNT, AUTOMATED 307 10^3/uL (150-450); RED BLOOD COUNT 4.71 10^6/uL (4.00-5.40); WHITE BLOOD COUNT 20.6 10^3/uL (4.0-10.0)
[2022-01-08] MEDS: CALCITONIN SALMON (MIACALCIN) 400INTERNATIONAL UNITS/2ML VIAL SQ SCH (06:07)
[2022-01-08 06:20] LABS: BLOOD UREA NITROGEN 21 MG/DL (7-18); CARBON DIOXIDE LEVEL 30 MEQ/L (21-32); CHLORIDE LEVEL 100 MEQ/L (98-107); CREATININE FOR GFR 0.85 MG/DL (0.55-1.30); GLOMERULAR FILTRATION RATE > 60.0 (>51); GLUCOSE, FASTING 156 MG/DL (70-100); POTASSIUM SERUM 3.4 MEQ/L (3.5-5.1); SODIUM LEVEL 136 MEQ/L (136-145)
[2022-01-08] MEDS ORDERED: CALCITONIN SALMON (MIACALCIN) 400INTERNATIONAL UNITS/2ML VIAL SQ SCH (07:10)
[2022-01-08] MEDS ORDERED: POTASSIUM CHLORIDE 10MEQ SR TABLET PO ONE (07:10)
[2022-01-08] MEDS ORDERED: NS 1,000 ML IV ONE (07:10)
[2022-01-08] MEDS ORDERED: ZOLEDRONIC ACID 4 MG in IV 1 EA IV ONE (07:10)
[2022-01-08] MEDS: INSULIN LISPRO (NovoLOG) PER UNIT SC SCH ×4 (07:55→20:20)
[2022-01-08] MEDS: LACTOBACILLUS ACIDOPHILUS CAP (BACID) PO SCH ×2 (07:56→18:18)
[2022-01-08] MEDS: TIOTROPIUM INHALER/CAPSULE (SPIRIVA) INH SCH (08:00)
[2022-01-08] MEDS: BUDESONIDE 180MCG INHALER (PULMICORT FLEXHALER) INH SCH ×2 (08:00→20:40)
[2022-01-08] MEDS: ONDANSETRON 4MG 2ML VIAL IV PRN (08:36)
[2022-01-08] MEDS: MIRALAX *UNIT DOSE* 17GM PACKET PO SCH (09:00)
[2022-01-08] MEDS: LIDOCAINE 5% (LIDODERM) PATCH TD SCH (09:00)
[2022-01-08] MEDS: CYANOCOBALAMIN 500 MCG TAB PO SCH (10:06)
[2022-01-08] MEDS: BENZONATATE 100MG CAPSULE PO SCH ×3 (10:06→22:00)
[2022-01-08] MEDS: POTASSIUM CHLORIDE 10MEQ SR TABLET PO SCH (10:06)
[2022-01-08] MEDS: PANTOPRAZOLE 40MG TAB (PROTONIX) PO SCH ×2 (10:06→21:59)
[2022-01-08] MEDS: DOCUSATE SODIUM 100MG CAPSULE PO SCH ×2 (10:06→21:59)
[2022-01-08] MEDS: SIMVASTATIN 40 MG TAB PO SCH (10:07)
[2022-01-08] MEDS: cefTRIAXone SOD 2 GM in D5W MINI-BAG PLUS 50 ML IV SCH (10:08)
[2022-01-08 10:41] LABS: ABG BASE EXCESS 2.5 (-2.0-2.0); ABG HCO3 26.2 MEQ/L (22.0-26.0); ABG O2 SATURATION 94.6 % (95.0-99.0); ABG PARTIAL PRESSURE CO2 37.3 mmHg (35.0-45.0); ABG PARTIAL PRESSURE O2 73.2 mmHg (75.0-100.0); ABG STANDARD HCO3 26.6 MEQ/L (22.0-26.0); ABG TOTAL CO2 27.3 MEQ/L (22.0-29.0); ABG pH (ARTERIAL) 7.464 UNITS (7.350-7.450)
[2022-01-08] MEDS: DOXYCYCLINE HYCLATE 100 MG in D5W MINI-BAG PLUS 100 ML IV SCH ×2 (11:22→22:00)
[2022-01-08] MEDS ORDERED: PROHANCE 279.3MG/ML 5ML VIAL As Ordered ONE (12:30)
[2022-01-08] MEDS ORDERED: PROHANCE 279.3MG/ML 15ML VIAL As Ordered ONE (12:30)
[2022-01-08 16:07] LABS: BODY FLUID CULTURE Not indicated. (.); LEGIONELLA ANTIGEN URINE Negative (Negative); ORGANISM ID Not indicated. (.); SPECIMEN SOURCE Urine (.); URINE STREP PNEUMONIAE ANTIGEN Negative (Negative)
[2022-01-08] MEDS: ACETAMINOPHEN TAB 650MG DOSE (2X325MG) PO PRN (16:49)
[2022-01-08] MEDS ORDERED: FUROSEMIDE 40MG/4ML VIAL (J1940) IV ONE (19:25)
[2022-01-08 19:32] LABS: SQUAMOUS EPITHELIAL CELL URINE SMALL AMOUNT /hpf (SMALL AMT)
[2022-01-08 19:33] LABS: BACTERIA, URINE NONE SEEN; HYALINE CAST, URINE NONE SEEN /lpf (0-1); MUCUS, URINE SMALL AMOUNT (NEGATIVE)
[2022-01-08] MEDS: NS 1,000 ML IV SCH (20:19)
[2022-01-08] MEDS: **NOTE PATIENT COMMENT** MISC XX SCH (20:20)
[2022-01-08] MEDS: AMITRIPTYLINE 10MG TABLET PO SCH (22:00)
[2022-01-08] MEDS: NYSTATIN 500,000 U/5 ML SUSP UDC PO SCH (22:00)
[2022-01-08] MEDS: rOPINIRole 0.25 MG TAB(REQUIP) PO SCH (22:00)
[2022-01-09] VITALS (22 sets, daily range): BP systolic 128–139; BP diastolic 59–77; O2SAT 88–96
[2022-01-09] MEDS ORDERED: NS 500 ML IV ONE (02:15)
[2022-01-09] MEDS ORDERED: ACETAMINOPHEN 650 MG SUPP PR ONE (02:15)
[2022-01-09 02:26] LABS: BASO % 0.1 % (0.0-1.0); EOS # 1.9 10^3/uL (0.0-0.5); HEMATOCRIT 37.4 % (36.0-47.0); HEMOGLOBIN 12.2 g/dl (12.0-15.5); LYMPH # 0.7 10^3/uL (1.5-5.0); LYMPH % 2.9 % (24.0-44.0); MEAN CORPUSCULAR HEMOGLOBIN 27.1 pg (27.0-33.0); MEAN CORPUSCULAR HGB CONC 32.6 g/dl (32.0-36.5); MEAN CORPUSCULAR VOLUME 82.9 fl (80.0-96.0); MONO # 1.4 10^3/uL (0.0-0.8); MONO % 5.9 % (2.0-8.0); NEUTROPHILS # 19.6 10^3/uL (1.5-8.5); NEUTROPHILS % 82.2 % (36.0-66.0); PLATELET COUNT, AUTOMATED 261 10^3/uL (150-450); RED BLOOD COUNT 4.51 10^6/uL (4.00-5.40); WHITE BLOOD COUNT 23.8 10^3/uL (4.0-10.0)
[2022-01-09 02:49] LABS: ABG BASE EXCESS 2.9 (-2.0-2.0); ABG HCO3 26.1 MEQ/L (22.0-26.0); ABG O2 SATURATION 94.7 % (95.0-99.0); ABG PARTIAL PRESSURE CO2 35.2 mmHg (35.0-45.0); ABG PARTIAL PRESSURE O2 69.5 mmHg (75.0-100.0); ABG TOTAL CO2 27.2 MEQ/L (22.0-29.0); ABG pH (ARTERIAL) 7.488 UNITS (7.350-7.450)
[2022-01-09 03:14] LABS: BLOOD UREA NITROGEN 17 MG/DL (7-18); CALCIUM LEVEL 10.9 MG/DL (8.5-10.1); CARBON DIOXIDE LEVEL 25 MEQ/L (21-32); CHLORIDE LEVEL 103 MEQ/L (98-107); CREATININE FOR GFR 0.85 MG/DL (0.55-1.30); GLOMERULAR FILTRATION RATE > 60.0 (>51); GLUCOSE, FASTING 160 MG/DL (70-100); MAGNESIUM LEVEL 1.6 MG/DL (1.8-2.4); NT-PRO BNP 1020 PG/ML (<125); POTASSIUM SERUM 3.8 MEQ/L (3.5-5.1); SODIUM LEVEL 134 MEQ/L (136-145)
[2022-01-09 03:25] LABS: RSV AMPLIFICATION NEGATIVE (NEGATIVE)
[2022-01-09] MEDS ORDERED: KETOROLAC 30 MG/ML 1ML VIAL IV ONE (04:10)
[2022-01-09] MEDS: NS 1,000 ML IV SCH ×2 (07:06→17:46)
[2022-01-09] MEDS: INSULIN LISPRO (NovoLOG) PER UNIT SC SCH ×3 (07:06→17:46)
[2022-01-09 07:11] LABS: BASO % 0.1 % (0.0-1.0); EOS # 0.3 10^3/uL (0.0-0.5); EOS % 1.1 % (0.0-3.0); HEMATOCRIT 34.9 % (36.0-47.0); LYMPH # 0.8 10^3/uL (1.5-5.0); LYMPH % 3.4 % (24.0-44.0); MEAN CORPUSCULAR HEMOGLOBIN 26.1 pg (27.0-33.0); MEAN CORPUSCULAR HGB CONC 31.5 g/dl (32.0-36.5); MEAN CORPUSCULAR VOLUME 82.9 fl (80.0-96.0); MONO # 1.2 10^3/uL (0.0-0.8); MONO % 5.6 % (2.0-8.0); NEUTROPHILS # 19.4 10^3/uL (1.5-8.5); NEUTROPHILS % 88.3 % (36.0-66.0); PLATELET COUNT, AUTOMATED 222 10^3/uL (150-450); RED BLOOD COUNT 4.21 10^6/uL (4.00-5.40)
[2022-01-09 07:38] LABS: BLOOD UREA NITROGEN 19 MG/DL (7-18); CALCIUM LEVEL 10.4 MG/DL (8.5-10.1); CARBON DIOXIDE LEVEL 25 MEQ/L (21-32); CHLORIDE LEVEL 105 MEQ/L (98-107); CREATININE FOR GFR 0.87 MG/DL (0.55-1.30); GLOMERULAR FILTRATION RATE > 60.0 (>51); GLUCOSE, FASTING 168 MG/DL (70-100); POTASSIUM SERUM 3.6 MEQ/L (3.5-5.1); SODIUM LEVEL 135 MEQ/L (136-145)
[2022-01-09] MEDS: LEVALBUTEROL 1.25 MG/0.5 ML CONCENTRATE NEB INH SCH ×5 (08:54→20:00)
[2022-01-09] MEDS: TIOTROPIUM INHALER/CAPSULE (SPIRIVA) INH SCH (08:54)
[2022-01-09] MEDS: BUDESONIDE 180MCG INHALER (PULMICORT FLEXHALER) INH SCH ×2 (08:57→21:03)
[2022-01-09] MEDS: DOCUSATE SODIUM 100MG CAPSULE PO SCH ×2 (09:00→20:46)
[2022-01-09] MEDS: MIRALAX *UNIT DOSE* 17GM PACKET PO SCH (09:00)
[2022-01-09] MEDS: LIDOCAINE 5% (LIDODERM) PATCH TD SCH (09:00)
[2022-01-09] MEDS: BENZONATATE 100MG CAPSULE PO SCH ×3 (09:49→20:45)
[2022-01-09] MEDS: CYANOCOBALAMIN 500 MCG TAB PO SCH (09:49)
[2022-01-09] MEDS: SIMVASTATIN 40 MG TAB PO SCH (09:50)
[2022-01-09] MEDS: PANTOPRAZOLE 40MG TAB (PROTONIX) PO SCH ×2 (09:50→20:46)
[2022-01-09] MEDS: POTASSIUM CHLORIDE 10MEQ SR TABLET PO SCH (09:50)
[2022-01-09] MEDS: cefTRIAXone SOD 2 GM in D5W MINI-BAG PLUS 50 ML IV SCH (09:50)
[2022-01-09] MEDS: NYSTATIN 500,000 U/5 ML SUSP UDC PO SCH ×4 (09:51→20:46)
[2022-01-09] MEDS: LACTOBACILLUS ACIDOPHILUS CAP (BACID) PO SCH ×2 (10:05→17:46)
[2022-01-09] MEDS: DOXYCYCLINE HYCLATE 100 MG in D5W MINI-BAG PLUS 100 ML IV SCH ×2 (12:23→21:12)
[2022-01-09] MEDS: ENOXAPARIN 40MG/0.4ML SYRINGE (J1650 PER 10MG) SC SCH ×2 (12:23→20:45)
[2022-01-09] MEDS: PERCOCET 5MG/325MG TAB PO PRN (13:38)
[2022-01-09] MEDS: rOPINIRole 0.25 MG TAB(REQUIP) PO SCH (20:45)
[2022-01-09] MEDS: **NOTE PATIENT COMMENT** MISC XX SCH (20:46)
[2022-01-09] MEDS: AMITRIPTYLINE 10MG TABLET PO SCH (20:46)
[2022-01-10] VITALS (24 sets, daily range): BP systolic 130–139; BP diastolic 55–82; O2SAT 86–97
[2022-01-10] MEDS: NS 1,000 ML IV SCH ×2 (00:15→08:49)
[2022-01-10] MEDS: LEVALBUTEROL 1.25 MG/0.5 ML CONCENTRATE NEB INH SCH ×7 (01:25→23:39)
[2022-01-10 04:41] LABS: BASO # 0.1 10^3/uL (0.0-0.2); BASO % 0.2 % (0.0-1.0); EOS # 3.6 10^3/uL (0.0-0.5); HEMATOCRIT 31.7 % (36.0-47.0); HEMOGLOBIN 10.1 g/dl (12.0-15.5); LYMPH # 1.1 10^3/uL (1.5-5.0); LYMPH % 4.2 % (24.0-44.0); MEAN CORPUSCULAR HEMOGLOBIN 26.6 pg (27.0-33.0); MEAN CORPUSCULAR HGB CONC 31.9 g/dl (32.0-36.5); MEAN CORPUSCULAR VOLUME 83.6 fl (80.0-96.0); MONO # 1.3 10^3/uL (0.0-0.8); MONO % 5.1 % (2.0-8.0); NEUTROPHILS # 19.5 10^3/uL (1.5-8.5); NEUTROPHILS % 75.2 % (36.0-66.0); PLATELET COUNT, AUTOMATED 219 10^3/uL (150-450); RED BLOOD COUNT 3.79 10^6/uL (4.00-5.40); WHITE BLOOD COUNT 25.9 10^3/uL (4.0-10.0)
[2022-01-10 05:23] LABS: BLOOD UREA NITROGEN 18 MG/DL (7-18); CALCIUM LEVEL 9.6 MG/DL (8.5-10.1); CARBON DIOXIDE LEVEL 24 MEQ/L (21-32); CHLORIDE LEVEL 108 MEQ/L (98-107); CREATININE FOR GFR 0.77 MG/DL (0.55-1.30); GLOMERULAR FILTRATION RATE > 60.0 (>51); GLUCOSE, FASTING 129 MG/DL (70-100); POTASSIUM SERUM 3.8 MEQ/L (3.5-5.1); SODIUM LEVEL 137 MEQ/L (136-145)
[2022-01-10] MEDS: INSULIN LISPRO (NovoLOG) PER UNIT SC SCH ×5 (05:30→20:02)
[2022-01-10] MEDS: PERCOCET 5MG/325MG TAB PO PRN (05:47)
[2022-01-10 08:37] LABS: TOTAL 25(OH) VITAMIN D 56.2 NG/ML (30.0-100.0)
[2022-01-10] MEDS: BUDESONIDE 180MCG INHALER (PULMICORT FLEXHALER) INH SCH ×2 (08:41→20:00)
[2022-01-10] MEDS: TIOTROPIUM INHALER/CAPSULE (SPIRIVA) INH SCH (08:41)
[2022-01-10] MEDS: LIDOCAINE 5% (LIDODERM) PATCH TD SCH (09:07)
[2022-01-10] MEDS: NYSTATIN 500,000 U/5 ML SUSP UDC PO SCH ×4 (09:07→20:57)
[2022-01-10] MEDS: PANTOPRAZOLE 40MG TAB (PROTONIX) PO SCH ×2 (09:07→20:57)
[2022-01-10] MEDS: DOCUSATE SODIUM 100MG CAPSULE PO SCH ×2 (09:07→20:57)
[2022-01-10] MEDS: ENOXAPARIN 40MG/0.4ML SYRINGE (J1650 PER 10MG) SC SCH (09:07)
[2022-01-10] MEDS: SIMVASTATIN 40 MG TAB PO SCH (09:08)
[2022-01-10] MEDS: BENZONATATE 100MG CAPSULE PO SCH ×3 (09:08→20:57)
[2022-01-10] MEDS: LACTOBACILLUS ACIDOPHILUS CAP (BACID) PO SCH ×2 (09:08→18:01)
[2022-01-10] MEDS: MIRALAX *UNIT DOSE* 17GM PACKET PO SCH (09:08)
[2022-01-10] MEDS: POTASSIUM CHLORIDE 10MEQ SR TABLET PO SCH (09:08)
[2022-01-10] MEDS: CYANOCOBALAMIN 500 MCG TAB PO SCH (09:08)
[2022-01-10 11:26] LABS: LDH LACTATE DEHYDROGENASE 335 U/L (84-246)
[2022-01-10] MEDS ORDERED: LIDOCAINE 1% MDV 20ML VIAL As Ordered ONE (12:07)
[2022-01-10] MEDS: ACETAMINOPHEN TAB 650MG DOSE (2X325MG) PO PRN (16:09)
[2022-01-10] MEDS: LEVALBUTEROL 1.25 MG/0.5 ML CONCENTRATE NEB INH PRN (16:43)
[2022-01-10] MEDS: SODIUM CHLORIDE 0.9% INJ 10 ML SYR IV SCH (18:02)
[2022-01-10 19:44] LABS: HEMATOCRIT 31.9 % (36.0-47.0); HEMOGLOBIN 9.9 g/dl (12.0-15.5)
[2022-01-10] MEDS: rOPINIRole 0.25 MG TAB(REQUIP) PO SCH (20:57)
[2022-01-10] MEDS: AMITRIPTYLINE 10MG TABLET PO SCH (20:57)
[2022-01-10] MEDS: **NOTE PATIENT COMMENT** MISC XX SCH (20:57)
[2022-01-11] VITALS: BP 137/78
[2022-01-11] MEDS: PERCOCET 5MG/325MG TAB PO PRN ×3 (03:07→20:45)
[2022-01-11 04:00] VITALS: BP 132/66
[2022-01-11] MEDS: LEVALBUTEROL 1.25 MG/0.5 ML CONCENTRATE NEB INH SCH ×6 (04:00→23:20)
[2022-01-11] MEDS: SODIUM CHLORIDE 0.9% INJ 10 ML SYR IV SCH ×2 (06:25→18:09)
[2022-01-11 06:40] LABS: BASO % 0.1 % (0.0-1.0); EOS # 1.6 10^3/uL (0.0-0.5); EOS % 7.2 % (0.0-3.0); HEMATOCRIT 30.1 % (36.0-47.0); HEMOGLOBIN 9.5 g/dl (12.0-15.5); LYMPH % 4.4 % (24.0-44.0); MEAN CORPUSCULAR HEMOGLOBIN 25.8 pg (27.0-33.0); MEAN CORPUSCULAR HGB CONC 31.6 g/dl (32.0-36.5); MEAN CORPUSCULAR VOLUME 81.8 fl (80.0-96.0); MONO # 1.2 10^3/uL (0.0-0.8); MONO % 5.6 % (2.0-8.0); NEUTROPHILS # 17.7 10^3/uL (1.5-8.5); NEUTROPHILS % 81.2 % (36.0-66.0); PLATELET COUNT, AUTOMATED 247 10^3/uL (150-450); RED BLOOD COUNT 3.68 10^6/uL (4.00-5.40); WHITE BLOOD COUNT 21.8 10^3/uL (4.0-10.0)
[2022-01-11 07:00] LABS: BLOOD UREA NITROGEN 16 MG/DL (7-18); CALCIUM LEVEL 9.4 MG/DL (8.5-10.1); CARBON DIOXIDE LEVEL 23 MEQ/L (21-32); CHLORIDE LEVEL 105 MEQ/L (98-107); CREATININE FOR GFR 0.72 MG/DL (0.55-1.30); GLOMERULAR FILTRATION RATE > 60.0 (>51); GLUCOSE, FASTING 147 MG/DL (70-100); POTASSIUM SERUM 3.7 MEQ/L (3.5-5.1); SODIUM LEVEL 136 MEQ/L (136-145)
[2022-01-11] MEDS: TIOTROPIUM INHALER/CAPSULE (SPIRIVA) INH SCH (07:35)
[2022-01-11] MEDS: BUDESONIDE 180MCG INHALER (PULMICORT FLEXHALER) INH SCH ×2 (07:35→19:33)
[2022-01-11 07:50] VITALS: BP 137/85
[2022-01-11] MEDS: INSULIN LISPRO (NovoLOG) PER UNIT SC SCH ×4 (08:08→20:29)
[2022-01-11] MEDS: LIDOCAINE 5% (LIDODERM) PATCH TD SCH (08:09)
[2022-01-11] MEDS: POTASSIUM CHLORIDE 10MEQ SR TABLET PO SCH (08:10)
[2022-01-11] MEDS: DOCUSATE SODIUM 100MG CAPSULE PO SCH ×2 (08:10→20:28)
[2022-01-11] MEDS: NYSTATIN 500,000 U/5 ML SUSP UDC PO SCH ×4 (08:10→20:31)
[2022-01-11] MEDS: LACTOBACILLUS ACIDOPHILUS CAP (BACID) PO SCH ×2 (08:10→18:08)
[2022-01-11] MEDS: MIRALAX *UNIT DOSE* 17GM PACKET PO SCH (08:10)
[2022-01-11] MEDS: PANTOPRAZOLE 40MG TAB (PROTONIX) PO SCH ×2 (08:11→20:28)
[2022-01-11] MEDS: BENZONATATE 100MG CAPSULE PO SCH ×3 (08:11→20:28)
[2022-01-11] MEDS: SUCRALFATE 1 GM TAB PO SCH ×4 (08:11→20:28)
[2022-01-11] MEDS: CYANOCOBALAMIN 500 MCG TAB PO SCH (08:12)
[2022-01-11] MEDS: SIMVASTATIN 40 MG TAB PO SCH (08:13)
[2022-01-11] MEDS: ACETAMINOPHEN TAB 650MG DOSE (2X325MG) PO PRN (12:54)
[2022-01-11 16:00] VITALS: BP 142/74
[2022-01-11 20:00] VITALS: BP 133/86
[2022-01-11] MEDS: AMITRIPTYLINE 10MG TABLET PO SCH (20:28)
[2022-01-11] MEDS: rOPINIRole 0.25 MG TAB(REQUIP) PO SCH (20:29)
[2022-01-11] MEDS: **NOTE PATIENT COMMENT** MISC XX SCH (20:32)
[2022-01-12] VITALS: BP 125/75
[2022-01-12 04:00] VITALS: BP 136/79
[2022-01-12] MEDS: LEVALBUTEROL 1.25 MG/0.5 ML CONCENTRATE NEB INH SCH ×6 (04:00→23:17)
[2022-01-12] MEDS: SODIUM CHLORIDE 0.9% INJ 10 ML SYR IV SCH ×2 (06:00→18:58)
[2022-01-12 06:02] LABS: BASO % 0.1 % (0.0-1.0); EOS # 3.2 10^3/uL (0.0-0.5); EOS % 12.1 % (0.0-3.0); HEMOGLOBIN 9.5 g/dl (12.0-15.5); LYMPH # 1.2 10^3/uL (1.5-5.0); LYMPH % 4.4 % (24.0-44.0); MEAN CORPUSCULAR HGB CONC 31.7 g/dl (32.0-36.5); MEAN CORPUSCULAR VOLUME 82.2 fl (80.0-96.0); MONO # 1.4 10^3/uL (0.0-0.8); MONO % 5.4 % (2.0-8.0); NEUTROPHILS % 76.5 % (36.0-66.0); PLATELET COUNT, AUTOMATED 278 10^3/uL (150-450); RED BLOOD COUNT 3.65 10^6/uL (4.00-5.40); WHITE BLOOD COUNT 26.1 10^3/uL (4.0-10.0)
[2022-01-12 06:25] LABS: BLOOD UREA NITROGEN 14 MG/DL (7-18); CALCIUM LEVEL 9.5 MG/DL (8.5-10.1); CARBON DIOXIDE LEVEL 23 MEQ/L (21-32); CHLORIDE LEVEL 102 MEQ/L (98-107); GLOMERULAR FILTRATION RATE > 60.0 (>51); GLUCOSE, FASTING 131 MG/DL (70-100); POTASSIUM SERUM 3.9 MEQ/L (3.5-5.1); SODIUM LEVEL 131 MEQ/L (136-145)
[2022-01-12 07:05] LABS: MAGNESIUM LEVEL 1.8 MG/DL (1.8-2.4)
[2022-01-12] MEDS: MAG SULF 1GM/100ML (MAG RUN) 1 GM in IV 1 EA IV SCH ×2 (07:43→08:51)
[2022-01-12 08:00] VITALS: BP 143/81
[2022-01-12] MEDS: BUDESONIDE 180MCG INHALER (PULMICORT FLEXHALER) INH SCH ×2 (08:36→19:33)
[2022-01-12] MEDS: TIOTROPIUM INHALER/CAPSULE (SPIRIVA) INH SCH (08:36)
[2022-01-12] MEDS: POTASSIUM CHLORIDE 10MEQ SR TABLET PO SCH (08:51)
[2022-01-12] MEDS: BENZONATATE 100MG CAPSULE PO SCH ×3 (08:51→21:53)
[2022-01-12] MEDS: SUCRALFATE 1 GM TAB PO SCH ×4 (08:51→21:00)
[2022-01-12] MEDS: NYSTATIN 500,000 U/5 ML SUSP UDC PO SCH ×4 (08:52→21:54)
[2022-01-12] MEDS: LACTOBACILLUS ACIDOPHILUS CAP (BACID) PO SCH ×2 (08:52→18:00)
[2022-01-12] MEDS: CYANOCOBALAMIN 500 MCG TAB PO SCH (08:52)
[2022-01-12] MEDS: SIMVASTATIN 40 MG TAB PO SCH (08:52)
[2022-01-12] MEDS: PANTOPRAZOLE 40MG TAB (PROTONIX) PO SCH ×2 (08:52→21:53)
[2022-01-12] MEDS: INSULIN LISPRO (NovoLOG) PER UNIT SC SCH ×4 (08:52→21:00)
[2022-01-12] MEDS: MIRALAX *UNIT DOSE* 17GM PACKET PO SCH (08:53)
[2022-01-12] MEDS: DOCUSATE SODIUM 100MG CAPSULE PO SCH ×2 (08:53→21:00)
[2022-01-12] MEDS: LIDOCAINE 5% (LIDODERM) PATCH TD SCH (08:53)
[2022-01-12] MEDS: PERCOCET 5MG/325MG TAB PO PRN ×2 (11:19→17:06)
[2022-01-12] MEDS: ONDANSETRON 4MG 2ML VIAL IV PRN (11:19)
[2022-01-12] MEDS: SODIUM CHLORIDE 0.9% INJ 10 ML SYR IV PRN (11:19)
[2022-01-12 12:00] VITALS: BP 118/74
[2022-01-12 16:00] VITALS: BP 132/84
[2022-01-12 20:00] VITALS: BP 130/70
[2022-01-12] MEDS: **NOTE PATIENT COMMENT** MISC XX SCH (21:00)
[2022-01-12] MEDS: rOPINIRole 0.25 MG TAB(REQUIP) PO SCH (21:53)
[2022-01-12] MEDS: AMITRIPTYLINE 10MG TABLET PO SCH (21:53)
[2022-01-13] VITALS (18 sets, daily range): BP systolic 130–140; BP diastolic 62–76; O2SAT 85–97
[2022-01-13] MEDS: PERCOCET 5MG/325MG TAB PO PRN ×3 (01:20→18:50)
[2022-01-13] MEDS: LEVALBUTEROL 1.25 MG/0.5 ML CONCENTRATE NEB INH SCH ×6 (04:00→23:11)
[2022-01-13 04:23] LABS: BASO % 0.1 % (0.0-1.0); EOS % 11.9 % (0.0-3.0); HEMATOCRIT 27.8 % (36.0-47.0); HEMOGLOBIN 8.9 g/dl (12.0-15.5); LYMPH # 0.9 10^3/uL (1.5-5.0); LYMPH % 3.7 % (24.0-44.0); MEAN CORPUSCULAR HEMOGLOBIN 26.5 pg (27.0-33.0); MEAN CORPUSCULAR VOLUME 82.7 fl (80.0-96.0); MONO # 1.3 10^3/uL (0.0-0.8); MONO % 5.2 % (2.0-8.0); NEUTROPHILS # 19.6 10^3/uL (1.5-8.5); PLATELET COUNT, AUTOMATED 274 10^3/uL (150-450); RED BLOOD COUNT 3.36 10^6/uL (4.00-5.40); WHITE BLOOD COUNT 25.2 10^3/uL (4.0-10.0)
[2022-01-13 04:52] LABS: BLOOD UREA NITROGEN 16 MG/DL (7-18); CALCIUM LEVEL 9.2 MG/DL (8.5-10.1); CARBON DIOXIDE LEVEL 22 MEQ/L (21-32); CHLORIDE LEVEL 103 MEQ/L (98-107); CREATININE FOR GFR 0.78 MG/DL (0.55-1.30); GLOMERULAR FILTRATION RATE > 60.0 (>51); GLUCOSE, FASTING 140 MG/DL (70-100); SODIUM LEVEL 132 MEQ/L (136-145)
[2022-01-13] MEDS: SODIUM CHLORIDE 0.9% INJ 10 ML SYR IV SCH ×2 (06:54→18:15)
[2022-01-13] MEDS: BUDESONIDE 180MCG INHALER (PULMICORT FLEXHALER) INH SCH ×2 (07:27→19:38)
[2022-01-13] MEDS: TIOTROPIUM INHALER/CAPSULE (SPIRIVA) INH SCH (07:28)
[2022-01-13] MEDS: SUCRALFATE 1 GM TAB PO SCH ×4 (07:30→22:04)
[2022-01-13] MEDS: LIDOCAINE 5% (LIDODERM) PATCH TD SCH (08:41)
[2022-01-13] MEDS: MIRALAX *UNIT DOSE* 17GM PACKET PO SCH (09:04)
[2022-01-13] MEDS: NYSTATIN 500,000 U/5 ML SUSP UDC PO SCH ×4 (09:05→22:06)
[2022-01-13] MEDS: DOCUSATE SODIUM 100MG CAPSULE PO SCH ×2 (09:05→22:03)
[2022-01-13] MEDS: INSULIN LISPRO (NovoLOG) PER UNIT SC SCH ×4 (09:05→21:00)
[2022-01-13] MEDS: BENZONATATE 100MG CAPSULE PO SCH ×3 (09:06→22:04)
[2022-01-13] MEDS: CYANOCOBALAMIN 500 MCG TAB PO SCH (09:06)
[2022-01-13] MEDS: PANTOPRAZOLE 40MG TAB (PROTONIX) PO SCH ×2 (09:06→22:03)
[2022-01-13] MEDS: POTASSIUM CHLORIDE 10MEQ SR TABLET PO SCH (09:06)
[2022-01-13] MEDS: SIMVASTATIN 40 MG TAB PO SCH (09:06)
[2022-01-13] MEDS: LACTOBACILLUS ACIDOPHILUS CAP (BACID) PO SCH ×2 (09:06→18:41)
[2022-01-13] MEDS: predniSONE 20 MG TAB PO SCH (11:21)
[2022-01-13] MEDS ORDERED: PEMBROLIZUMAB OVER 30 MINUTES IV ONE ×2 (17:00)
[2022-01-13] MEDS: **NOTE PATIENT COMMENT** MISC XX SCH (21:00)
[2022-01-13] MEDS: AMITRIPTYLINE 10MG TABLET PO SCH (22:04)
[2022-01-13] MEDS: rOPINIRole 0.25 MG TAB(REQUIP) PO SCH (22:05)
[2022-01-14] MEDS: PERCOCET 5MG/325MG TAB PO PRN ×4 (00:30→22:20)
[2022-01-14] MEDS: LEVALBUTEROL 1.25 MG/0.5 ML CONCENTRATE NEB INH SCH ×6 (03:12→23:35)
[2022-01-14 04:06] VITALS: BP 159/78
[2022-01-14] MEDS: SODIUM CHLORIDE 0.9% INJ 10 ML SYR IV SCH ×2 (05:38→17:24)
[2022-01-14] MEDS: guaiFENesin ER 600 MG TAB PO PRN (06:46)
[2022-01-14] MEDS: BUDESONIDE 180MCG INHALER (PULMICORT FLEXHALER) INH SCH ×2 (07:20→19:55)
[2022-01-14] MEDS: TIOTROPIUM INHALER/CAPSULE (SPIRIVA) INH SCH (07:21)
[2022-01-14 07:25] LABS: BASO % 0.1 % (0.0-1.0); EOS # 0.1 10^3/uL (0.0-0.5); EOS % 0.4 % (0.0-3.0); HEMOGLOBIN 8.8 g/dl (12.0-15.5); LYMPH # 0.7 10^3/uL (1.5-5.0); LYMPH % 2.8 % (24.0-44.0); MEAN CORPUSCULAR HEMOGLOBIN 26.3 pg (27.0-33.0); MEAN CORPUSCULAR HGB CONC 31.4 g/dl (32.0-36.5); MEAN CORPUSCULAR VOLUME 83.6 fl (80.0-96.0); MONO # 0.9 10^3/uL (0.0-0.8); MONO % 3.6 % (2.0-8.0); NEUTROPHILS # 22.6 10^3/uL (1.5-8.5); NEUTROPHILS % 91.4 % (36.0-66.0); PLATELET COUNT, AUTOMATED 311 10^3/uL (150-450); RED BLOOD COUNT 3.35 10^6/uL (4.00-5.40); WHITE BLOOD COUNT 24.8 10^3/uL (4.0-10.0)
[2022-01-14] MEDS: INSULIN LISPRO (NovoLOG) PER UNIT SC SCH ×4 (07:30→19:59)
[2022-01-14 07:52] VITALS: BP 136/62
[2022-01-14 07:55] LABS: BLOOD UREA NITROGEN 15 MG/DL (7-18); CALCIUM LEVEL 9.6 MG/DL (8.5-10.1); CARBON DIOXIDE LEVEL 25 MEQ/L (21-32); CHLORIDE LEVEL 101 MEQ/L (98-107); CREATININE FOR GFR 0.75 MG/DL (0.55-1.30); GLOMERULAR FILTRATION RATE > 60.0 (>51); GLUCOSE, FASTING 116 MG/DL (70-100); POTASSIUM SERUM 4.2 MEQ/L (3.5-5.1); SODIUM LEVEL 133 MEQ/L (136-145)
[2022-01-14] MEDS: predniSONE 20 MG TAB PO SCH (08:19)
[2022-01-14] MEDS: NYSTATIN 500,000 U/5 ML SUSP UDC PO SCH ×4 (08:19→22:19)
[2022-01-14] MEDS: PANTOPRAZOLE 40MG TAB (PROTONIX) PO SCH ×2 (08:19→22:20)
[2022-01-14] MEDS: POTASSIUM CHLORIDE 10MEQ SR TABLET PO SCH (08:19)
[2022-01-14] MEDS: BENZONATATE 100MG CAPSULE PO SCH ×3 (08:19→22:20)
[2022-01-14] MEDS: LACTOBACILLUS ACIDOPHILUS CAP (BACID) PO SCH ×2 (08:19→17:23)
[2022-01-14] MEDS: SIMVASTATIN 40 MG TAB PO SCH (08:20)
[2022-01-14] MEDS: CYANOCOBALAMIN 500 MCG TAB PO SCH (08:20)
[2022-01-14] MEDS: LIDOCAINE 5% (LIDODERM) PATCH TD SCH (08:22)
[2022-01-14] MEDS: DOCUSATE SODIUM 100MG CAPSULE PO SCH ×2 (08:22→22:19)
[2022-01-14] MEDS: MIRALAX *UNIT DOSE* 17GM PACKET PO SCH (08:22)
[2022-01-14] MEDS: SUCRALFATE 1 GM TAB PO SCH ×4 (08:22→22:20)
[2022-01-14 09:03] LABS: CK-MB VALUE MASS < 1.0 NG/ML (<3.6); CPK CREATINE PHOSPHOKINASE 10 U/L (26-192)
[2022-01-14] MEDS ORDERED: FUROSEMIDE 20MG/2ML VIAL (J1940) IV ONE (10:00)
[2022-01-14] MEDS ORDERED: methylPREDNISolone 125MG 2ML VIAL IV ONE (11:05)
[2022-01-14] MEDS ORDERED: ISOVUE-370 76% 100ML VIAL As Ordered ONE (11:18)
[2022-01-14 12:09] VITALS: BP 115/56
[2022-01-14] MEDS: HEPARIN SOD (PORCINE) 5000UNITS/ML 1ML VIAL/SYRINGE SQ SCH ×2 (15:05→22:19)
[2022-01-14 16:00] VITALS: BP 120/60
[2022-01-14] MEDS ORDERED: methylPREDNISolone 125MG 2ML VIAL IV SCH (17:00)
[2022-01-14 20:10] VITALS: BP 148/67
[2022-01-14] MEDS: methylPREDNISolone 125MG 2ML VIAL IV SCH (22:19)
[2022-01-14] MEDS: AMITRIPTYLINE 10MG TABLET PO SCH (22:19)
[2022-01-14] MEDS: **NOTE PATIENT COMMENT** MISC XX SCH (22:19)
[2022-01-14] MEDS: rOPINIRole 0.25 MG TAB(REQUIP) PO SCH (22:20)
[2022-01-14 23:47] VITALS: BP 144/67
[2022-01-15] MEDS: LEVALBUTEROL 1.25 MG/0.5 ML CONCENTRATE NEB INH SCH ×5 (03:35→20:10)
[2022-01-15] MEDS ORDERED: IPRATROPIUM 0.5MG/ALBUTEROL 2.5MG INH SOL UD 3ML (DUONEB) NEB ONE (03:50)
[2022-01-15 03:53] VITALS: BP 131/82
[2022-01-15 04:15] LABS: ABG BASE EXCESS -0.5 (-2.0-2.0); ABG HCO3 22.8 MEQ/L (22.0-26.0); ABG O2 SATURATION 94.2 % (95.0-99.0); ABG PARTIAL PRESSURE CO2 32.3 mmHg (35.0-45.0); ABG PARTIAL PRESSURE O2 70.3 mmHg (75.0-100.0); ABG TOTAL CO2 23.8 MEQ/L (22.0-29.0); ABG pH (ARTERIAL) 7.467 UNITS (7.350-7.450)
[2022-01-15] MEDS: methylPREDNISolone 125MG 2ML VIAL IV SCH (04:39)
[2022-01-15] MEDS: SODIUM CHLORIDE 0.9% INJ 10 ML SYR IV SCH ×2 (04:40→17:30)
[2022-01-15] MEDS: PERCOCET 5MG/325MG TAB PO PRN ×3 (04:50→19:57)
[2022-01-15 05:56] VITALS: BP 150/70
[2022-01-15] MEDS: HEPARIN SOD (PORCINE) 5000UNITS/ML 1ML VIAL/SYRINGE SQ SCH (05:56)
[2022-01-15 06:00] VITALS: BP 144/67
[2022-01-15 08:00] VITALS: BP 136/65
[2022-01-15] MEDS: BUDESONIDE 180MCG INHALER (PULMICORT FLEXHALER) INH SCH ×2 (08:11→20:00)
[2022-01-15] MEDS: TIOTROPIUM INHALER/CAPSULE (SPIRIVA) INH SCH (08:11)
[2022-01-15] MEDS ORDERED: FUROSEMIDE 40MG/4ML VIAL (J1940) IV ONE (08:15)
[2022-01-15 08:41] LABS: HEMATOCRIT 24.8 % (36.0-47.0); HEMOGLOBIN 8.1 g/dl (12.0-15.5); MEAN CORPUSCULAR HEMOGLOBIN 26.7 pg (27.0-33.0); MEAN CORPUSCULAR HGB CONC 32.7 g/dl (32.0-36.5); MEAN CORPUSCULAR VOLUME 81.8 fl (80.0-96.0); PLATELET COUNT, AUTOMATED 269 10^3/uL (150-450); RED BLOOD COUNT 3.03 10^6/uL (4.00-5.40); WHITE BLOOD COUNT 24.9 10^3/uL (4.0-10.0)
[2022-01-15] MEDS: BENZONATATE 100MG CAPSULE PO SCH (08:43)
[2022-01-15] MEDS: CYANOCOBALAMIN 500 MCG TAB PO SCH (08:43)
[2022-01-15] MEDS: SIMVASTATIN 40 MG TAB PO SCH (08:43)
[2022-01-15] MEDS: PANTOPRAZOLE 40MG TAB (PROTONIX) PO SCH ×2 (08:44→19:47)
[2022-01-15] MEDS: LACTOBACILLUS ACIDOPHILUS CAP (BACID) PO SCH (08:44)
[2022-01-15] MEDS: NYSTATIN 500,000 U/5 ML SUSP UDC PO SCH (08:45)
[2022-01-15] MEDS: DOCUSATE SODIUM 100MG CAPSULE PO SCH (08:46)
[2022-01-15] MEDS: POTASSIUM CHLORIDE 10MEQ SR TABLET PO SCH (08:46)
[2022-01-15] MEDS: MIRALAX *UNIT DOSE* 17GM PACKET PO SCH (08:47)
[2022-01-15] MEDS: LIDOCAINE 5% (LIDODERM) PATCH TD SCH ×2 (08:47→09:00)
[2022-01-15] MEDS: SUCRALFATE 1 GM TAB PO SCH (08:48)
[2022-01-15 09:00] VITALS: BP 146/71
[2022-01-15 09:10] LABS: ALBUMIN 1.7 GM/DL (3.2-5.2); ALT/SGPT 22 U/L (12-78); BILIRUBIN,TOTAL 0.5 MG/DL (0.2-1.0); BLOOD UREA NITROGEN 21 MG/DL (7-18); CALCIUM LEVEL 9.6 MG/DL (8.5-10.1); CARBON DIOXIDE LEVEL 22 MEQ/L (21-32); CHLORIDE LEVEL 104 MEQ/L (98-107); CREATININE FOR GFR 0.89 MG/DL (0.55-1.30); GLOMERULAR FILTRATION RATE > 60.0 (>51); GLUCOSE, FASTING 172 MG/DL (70-100); MAGNESIUM LEVEL 2.2 MG/DL (1.8-2.4); POTASSIUM SERUM 4.4 MEQ/L (3.5-5.1); SODIUM LEVEL 133 MEQ/L (136-145)
[2022-01-15] MEDS: INSULIN LISPRO (NovoLOG) PER UNIT SC SCH (09:12)
[2022-01-15 10:00] VITALS: BP 151/78
[2022-01-15] MEDS ORDERED: LORazepam 2 MG/ML VIAL IV PRN (11:00)
[2022-01-15] MEDS ORDERED: SCOPOLAMINE 1MG TRANSDERMAL PATCH TOP PRN (11:00)
[2022-01-15] MEDS ORDERED: diazePAM 10MG/2ML SYRINGE (J3360 PER 5MG) IV PRN (11:30)
[2022-01-15] MEDS: IPRATROPIUM 0.02% SOLN 0.5MG 2.5ML NEB INH SCH ×3 (11:57→20:10)
[2022-01-15] MEDS: MORPHINE 2 MG/ML 1ML VIAL IV PRN ×4 (12:28→19:48)
[2022-01-15] MEDS ORDERED: HYOSCYAMINE SULFATE 0.125 MG SUBL TABLET PO PRN (12:55)
[2022-01-15] MEDS: diazePAM 10MG/2ML SYRINGE (J3360 PER 5MG) IV PRN (15:49)
[2022-01-15] MEDS: **NOTE PATIENT COMMENT** MISC XX SCH (21:19)
[2022-01-16] MEDS: MORPHINE 2 MG/ML 1ML VIAL IV PRN ×3 (03:33→10:57)
[2022-01-16] MEDS: IPRATROPIUM 0.02% SOLN 0.5MG 2.5ML NEB INH SCH ×6 (04:00→20:00)
[2022-01-16] MEDS: LEVALBUTEROL 1.25 MG/0.5 ML CONCENTRATE NEB INH SCH ×6 (04:00→20:00)
[2022-01-16] MEDS: SODIUM CHLORIDE 0.9% INJ 10 ML SYR IV SCH ×2 (05:55→18:23)
[2022-01-16] MEDS: BUDESONIDE 180MCG INHALER (PULMICORT FLEXHALER) INH SCH ×2 (08:00→20:00)
[2022-01-16] MEDS: PANTOPRAZOLE 40MG TAB (PROTONIX) PO SCH ×2 (09:00→20:12)
[2022-01-16] MEDS: LIDOCAINE 5% (LIDODERM) PATCH TD SCH (09:00)
[2022-01-16] MEDS: diazePAM 10MG/2ML SYRINGE (J3360 PER 5MG) IV PRN (09:48)
[2022-01-16] MEDS: SODIUM CHLORIDE 0.9% INJ 10 ML SYR IV PRN ×2 (09:52→10:59)
[2022-01-16] MEDS: MORPHINE 10MG/0.5ML ORAL CONCENTRATE SOLUTION U/D SL PRN ×4 (14:28→22:00)
[2022-01-16] MEDS: LORazepam 1 MG TAB PO PRN ×3 (15:16→20:12)
[2022-01-16] MEDS: **NOTE PATIENT COMMENT** MISC XX SCH (21:00)
[2022-01-17] MEDS: LORazepam 1 MG TAB PO PRN (03:32)
[2022-01-17] MEDS: LEVALBUTEROL 1.25 MG/0.5 ML CONCENTRATE NEB INH SCH ×2 (04:00)
[2022-01-17] MEDS: IPRATROPIUM 0.02% SOLN 0.5MG 2.5ML NEB INH SCH ×2 (04:00)
[2022-01-17] MEDS: MORPHINE 10MG/0.5ML ORAL CONCENTRATE SOLUTION U/D SL PRN (06:07)
[2022-01-17] MEDS: SODIUM CHLORIDE 0.9% INJ 10 ML SYR IV SCH (06:13)
== END 2022-01-17 06:30 | disposition expired | DRG 461 ==
LOC: M ED 15:39 → M ED INP 22:07 → EEVIPCON 22:07 → ENRESERV 01-03 02:54 → M MSPAV 01-03 03:53 → M PCU 01-05 09:06 → M ICU 01-15 05:42 → M MSPAV 01-15 17:12
PROVIDERS: ADMIT Internal Medicine; ATTEND Internal Medicine Nephrology
PROC: BW24YZZ Computerized Tomography (CT Scan) of Chest and Abdomen using Other Contrast (ICD-10-PCS; 2022-01-02)
PROC: B246ZZZ Ultrasonography of Right and Left Heart (ICD-10-PCS; 2022-01-04)
PROC: 0BBK3ZX Excision of Right Lung, Percutaneous Approach, Diagnostic (ICD-10-PCS; principal; 2022-01-04 15:30)
PROC: 02HV33Z Insertion of Infusion Device into Superior Vena Cava, Percutaneous Approach (ICD-10-PCS; 2022-01-10)
PROC: BB24ZZZ Computerized Tomography (CT Scan) of Bilateral Lungs (ICD-10-PCS; 2022-01-14)
DX: C64.2 Malignant neoplasm of left kidney, except renal pelvis (principal); J96.21 Acute and chronic respiratory failure with hypoxia; G93.41 Metabolic encephalopathy; J18.9 Pneumonia, unspecified organism; J91.8 Pleural effusion in other conditions classified elsewhere; C78.01 Secondary malignant neoplasm of right lung; C79.51 Secondary malignant neoplasm of bone; E87.2 Acidosis; J44.0 Chronic obstructive pulmonary disease with (acute) lower respiratory infection; K92.2 Gastrointestinal hemorrhage, unspecified; E66.2 Morbid (severe) obesity with alveolar hypoventilation; E83.52 Hypercalcemia; Z68.41 Body mass index [BMI] 40.0-44.9, adult; J44.1 Chronic obstructive pulmonary disease with (acute) exacerbation; E11.9 Type 2 diabetes mellitus without complications; I10 Essential (primary) hypertension; K21.9 Gastro-esophageal reflux disease without esophagitis; L40.9 Psoriasis, unspecified; E78.5 Hyperlipidemia, unspecified; Z66 Do not resuscitate; Z87.891 Personal history of nicotine dependence; M19.90 Unspecified osteoarthritis, unspecified site; Z86.003 Personal history of in-situ neoplasm of oral cavity, esophagus and stomach; Z90.49 Acquired absence of other specified parts of digestive tract; F32.A Depression, unspecified; Z79.84 Long term (current) use of oral hypoglycemic drugs; Z79.899 Other long term (current) drug therapy; Z88.2 Allergy status to sulfonamides; Z20.822 Contact with and (suspected) exposure to COVID-19; D72.829 Elevated white blood cell count, unspecified; G25.81 Restless legs syndrome; M54.9 Dorsalgia, unspecified; G89.29 Other chronic pain; R00.0 Tachycardia, unspecified; T45.1X5A Adverse effect of antineoplastic and immunosuppressive drugs, initial encounter